=== PATIENT | male | born 1975 | race Caucasian/White ===

== ENCOUNTER 2017-04-03 04:17 | Emergency (ER) | payer OTHER ==
[~2017-04-03] VITALS: Ht 175.2 cm; Wt 68.0 kg
[~2017-04-03 04:17] MED LIST: ANTIVERT25 MG PO; CATAFLAM50 MG PO; CLARITIN10 MG PO; CLEOCIN HCL150 MG PO; CLINDAMYCIN150 MG PO; DAYPRO600 M1 PO; DIFLUCAN100 MG PO; DILANTIN KAPSE100 MG PO; FLEXERIL10 MG PO; FLEXERIL5 MG PO; GENTAMYCIN3 MG/ML OP; IBU-8800 MG PO; IBU800 M1 PO; KEFLEX500 MG PO; LOTRISONE 0.05%1 CRE TP; MEDROL DOSEPAK4 MG PO; MOTRIN,RUFEN800 MG PO; MOTRIN800 MG PO; NAPROSYN500 MG PO; NKHM; PERCOCET 325 MG1 TA2 PO; PERCOCET 325 MG1 TA5 PO; PREDNISONE10 MG PO; ROBAXIN750 MG PO; TOBRADEX 0.1%-0.5 ML OPH; TORADOL10 MG PO; TRAMADOL HCL50 MG PO; ULTRAM50 MG PO; VICODIN 500 MG-1 TAB PO; ZANTAC 300300 MG PO; ZANTAC150 MG PO; ZITHROMAX Z PA250 MG PO
[2017-04-03 04:25] VITALS: BP 124/88
== END 2017-04-03 05:01 | disposition home or self-care (01) ==
LOC: ED 04:17
DX: S93.401A Sprain of unspecified ligament of right ankle, initial encounter (principal); Z91.030 Bee allergy status; Z88.0 Allergy status to penicillin; Z88.6 Allergy status to analgesic agent; W19.XXXA Unspecified fall, initial encounter; Y93.89 Activity, other specified; Y92.89 Other specified places as the place of occurrence of the external cause; Y99.8 Other external cause status

== ENCOUNTER 2017-04-05 21:53 | Emergency (ER) | payer OTHER ==
[~2017-04-05] VITALS: Ht 175.2 cm; Wt 65.8 kg
[2017-04-05 22:03] VITALS: BP 126/69
[2017-04-06] MEDS ORDERED: Motrin,Rufen800 MG PO (00:30)
[2017-04-06] MEDS ORDERED: Percocet 325 MG1 TAB PO (00:30)
== END 2017-04-06 00:56 | disposition home or self-care (01) ==
LOC: ED 21:53
DX: S70.01XA Contusion of right hip, initial encounter (principal); F17.200 Nicotine dependence, unspecified, uncomplicated; Z98.890 Other specified postprocedural states; Z91.030 Bee allergy status; Z88.0 Allergy status to penicillin; Z88.6 Allergy status to analgesic agent; Z88.5 Allergy status to narcotic agent; W10.8XXA Fall (on) (from) other stairs and steps, initial encounter; Y93.89 Activity, other specified; Y92.89 Other specified places as the place of occurrence of the external cause; Y99.9 Unspecified external cause status

== ENCOUNTER 2017-04-22 20:28 | Emergency (ER) | payer OTHER ==
[~2017-04-22] VITALS: Ht 175.2 cm; Wt 68.0 kg
[~2017-04-22 20:28] MED LIST changes: +Motrin,Rufen800 MG PO; +Percocet 325 MG1 TAB PO
[2017-04-22 20:35] VITALS: BP 127/64
[2017-04-22 21:18] LABS: BILIRUBIN NEGATIVE (NEGATIVE); BLOOD NEGATIVE (NEGATIVE); CLARITY SL CLOUDY (CLEAR); COLOR YELLOW (YELLOW); GLUCOSE NEGATIVE (NEGATIVE); KETONE NEGATIVE (NEGATIVE); LEUKO ESTERASE NEGATIVE (NEGATIVE); NITRITE NEGATIVE (NEGATIVE); SPECIFIC GRAVITY 1.025 (1.005-1.030); UROBILINOGEN 0.2 E.U./dl (0.2-1.0)
[2017-04-22 21:35] LABS: BACTERIA TRACE; MUCOUS 3+; WBC 0-2 wbc/hpf (0-5)
[2017-04-22] MEDS ORDERED: Percocet 325 MG1 TAB PO (23:16)
[2017-04-22] MEDS ORDERED: PREDNISONE10 MG PO (23:16)
[2017-04-22] MEDS ORDERED: Orphenadrine C100 MG PO (23:16)
== END 2017-04-22 23:50 | disposition home or self-care (01) ==
LOC: ED 20:28
PROVIDERS: Emergency Medicine Emergency Medical Services
DX: M51.27 Other intervertebral disc displacement, lumbosacral region (principal); F17.200 Nicotine dependence, unspecified, uncomplicated; Z98.890 Other specified postprocedural states; Z91.030 Bee allergy status; Z88.0 Allergy status to penicillin; Z88.6 Allergy status to analgesic agent; Z88.5 Allergy status to narcotic agent

== ENCOUNTER 2017-04-24 14:38 | Emergency (ER) | payer OTHER ==
[~2017-04-24] VITALS: Ht 175.2 cm; Wt 68.0 kg
[~2017-04-24 14:38] MED LIST changes: +Orphenadrine C100 MG PO
[2017-04-24 15:06] VITALS: BP 157/70
[2017-04-24] MEDS ORDERED: CYCLOBENZAPRINE5 M3 PO (16:23)
== END 2017-04-24 17:00 | disposition home or self-care (01) ==
LOC: ED 14:38
DX: M54.5 Low back pain (principal); F17.200 Nicotine dependence, unspecified, uncomplicated; Z98.890 Other specified postprocedural states; Z91.030 Bee allergy status; Z88.6 Allergy status to analgesic agent; Z88.0 Allergy status to penicillin; Z88.5 Allergy status to narcotic agent

== ENCOUNTER 2018-01-01 18:19 | Emergency (ER) | payer OTHER ==
[~2018-01-01] VITALS: Wt 89.8 kg
[~2018-01-01 18:19] MED LIST changes: +CYCLOBENZAPRINE5 M3 PO
[2018-01-01 18:23] VITALS: BP 130/68
[2018-01-01] MEDS ORDERED: TYLENOL EXTRA500 MG PO (18:28)
[2018-01-01] MEDS ORDERED: FOSAMAX70 M1 PO (18:29)
[2018-01-01] MEDS ORDERED: GABAPENTIN TAB600 MG PO (18:29)
[2018-01-01] MEDS ORDERED: TIZANIDINE2 MG PO (18:30)
[2018-01-01] MEDS ORDERED: RA HI-CAL PLUS1 EACH PO (18:30)
[2018-01-01] MEDS ORDERED: FLOVENT DISKUS50 MCG INH (18:31)
[2018-01-01] MEDS ORDERED: NAPROSYN500 MG PO (18:50)
[2018-01-01] MEDS ORDERED: KEFLEX500 M1 PO (18:50)
[2018-01-01] MEDS ORDERED: SEPTDS PO (18:57)
== END 2018-01-01 19:18 | disposition home or self-care (01) ==
LOC: ED 18:19
DX: S90.122A Contusion of left lesser toe(s) without damage to nail, initial encounter (principal); Z88.0 Allergy status to penicillin; Z88.5 Allergy status to narcotic agent; Z91.030 Bee allergy status; Z79.899 Other long term (current) drug therapy; W22.8XXA Striking against or struck by other objects, initial encounter; Y93.89 Activity, other specified; Y92.89 Other specified places as the place of occurrence of the external cause; Y99.8 Other external cause status

== ENCOUNTER 2018-07-03 20:08 | Emergency (ER) | payer OTHER ==
[~2018-07-03] VITALS: Ht 175.2 cm; Wt 79.4 kg
[~2018-07-03 20:08] MED LIST changes: +FLOVENT DISKUS50 MCG INH; +FOSAMAX70 M1 PO; +GABAPENTIN TAB600 MG PO; +KEFLEX500 M1 PO; +RA HI-CAL PLUS1 EACH PO; +SEPTDS PO; +TIZANIDINE2 MG PO; +TYLENOL EXTRA500 MG PO
[2018-07-03 20:12] VITALS: BP 148/78
[2018-07-03] MEDS ORDERED: ZITHROMAX250 MG PO (21:46)
== END 2018-07-03 21:50 ==
LOC: ED 20:08
DX: J02.9 Acute pharyngitis, unspecified (principal); Z91.030 Bee allergy status; Z88.0 Allergy status to penicillin; Z88.6 Allergy status to analgesic agent; Z88.8 Allergy status to other drugs, medicaments and biological substances; Z79.1 Long term (current) use of non-steroidal anti-inflammatories (NSAID); Z79.899 Other long term (current) drug therapy

== ENCOUNTER 2018-08-17 18:25 | Emergency (ER) | payer OTHER ==
[~2018-08-17] VITALS: Wt 72.6 kg
[~2018-08-17 18:25] MED LIST changes: +ZITHROMAX250 MG PO
[2018-08-17 18:50] LABS: BASO % 0.4 % (0.0-1.0); EOS # 0.1 10*3/uL (0.0-0.4); EOS % 0.8 % (1.0-4.0); HEMATOCRIT 45.3 % (42.0-52.0); HEMOGLOBIN 15.6 g/dl (14.0-18.0); LYMPH # 1.6 10*3/uL (1.3-4.4); MEAN CELL VOLUME 94.2 fl (80.0-94.0); MEAN CORPUSCULAR HGB 32.4 pg (27.0-31.0); MEAN CORPUSCULAR HGB CONC 34.4 g/dl (33.0-37.0); MONO # 0.6 10*3/uL (0.1-1.0); MONO % 7.8 % (3.0-9.0); NEUT # 5.1 10*3/uL (2.3-7.9); NEUT % 68.6 % (47.0-73.0); PLATELET COUNT AUTOMATED 307 10*3/uL (130-400); RED BLOOD COUNT 4.81 10*6/uL (4.50-5.90); RED CELL DISTRI WIDTH 12.4 % (0-14.5); WHITE BLOOD COUNT 7.5 10*3/uL (4.8-10.8)
[2018-08-17] MEDS ORDERED: CHLORZOXAZONE500 M2 PO (19:05)
[2018-08-17 19:06] LABS: ALBUMIN 3.9 gm/dl (3.1-4.5); ALKALINE PHOSPHATASE 71 U/L (45-117); BUN 17 mg/dl (7-24); CHLORIDE 107 mmol/L (98-107); CREATININE 0.95 mg/dL (0.70-1.30); POTASSIUM 3.4 mmol/L (3.5-5.1); SGOT/AST 14 IU/L (3-35); SGPT/ALT 25 U/L (12-78); SODIUM 138 mmol/L (136-145); TOTAL PROTEIN 7.4 gm/dL (6.4-8.2)
[2018-08-17 19:25] VITALS: BP 132/74
== END 2018-08-17 19:55 | disposition home or self-care (01) ==
LOC: ED 18:25
PROVIDERS: Nurse Practitioner Family
DX: R51 Headache (principal); R03.0 Elevated blood-pressure reading, without diagnosis of hypertension; M54.32 Sciatica, left side; H53.149 Visual discomfort, unspecified; Z91.030 Bee allergy status; Z88.0 Allergy status to penicillin; Z88.6 Allergy status to analgesic agent; Z88.8 Allergy status to other drugs, medicaments and biological substances; Z79.899 Other long term (current) drug therapy; Z79.2 Long term (current) use of antibiotics

== ENCOUNTER 2018-08-27 15:44 | Emergency (ER) | payer OTHER ==
[~2018-08-27] VITALS: Ht 175.2 cm; Wt 72.6 kg
[~2018-08-27 15:44] MED LIST changes: +CHLORZOXAZONE500 M2 PO
[2018-08-27 15:46] VITALS: BP 127/74
[2018-08-27] MEDS ORDERED: CHLORZOXAZONE500 M2 PO (15:53)
[2018-08-27] MEDS ORDERED: PREDNISONE10 MG PO (15:53)
== END 2018-08-27 16:06 | disposition home or self-care (01) ==
LOC: ED 15:44
DX: M54.32 Sciatica, left side (principal); R03.0 Elevated blood-pressure reading, without diagnosis of hypertension; M54.9 Dorsalgia, unspecified; Z91.030 Bee allergy status; Z88.0 Allergy status to penicillin; Z88.6 Allergy status to analgesic agent; Z79.899 Other long term (current) drug therapy

== ENCOUNTER 2018-08-28 11:50 | Emergency (ER) | payer OTHER ==
[~2018-08-28] VITALS: Ht 175.2 cm; Wt 79.8 kg
[~2018-08-28 11:50] MED LIST changes: -CYCLOBENZAPRINE10 MG PO; -DELTASONE20 M1 PO; -DOXYCYCLINE100 M3 PO; -DULOXETINE HCL60 MG PO; -IBU800 MG PO; -LEXAPRO10 MG PO; -MIRTAZAPINE15 M2 PO; -NAPROXEN D/R500 MG PO; -PREDNISONE50 MG PO; -VIBRAMYCIN100 MG PO
[2018-08-28 12:36] LABS: BASO % 0.2 % (0.0-1.0); EOS % 0.2 % (1.0-4.0); HEMATOCRIT 42.8 % (42.0-52.0); HEMOGLOBIN 14.5 g/dl (14.0-18.0); LYMPH # 3.1 10*3/uL (1.3-4.4); LYMPH % 21.1 % (27.0-41.0); MEAN CELL VOLUME 95.5 fl (80.0-94.0); MEAN CORPUSCULAR HGB 32.4 pg (27.0-31.0); MEAN CORPUSCULAR HGB CONC 33.9 g/dl (33.0-37.0); MEAN PLATELET VOLUME 8.6 fl (9.6-12.3); MONO # 0.9 10*3/uL (0.1-1.0); MONO % 6.5 % (3.0-9.0); NEUT # 10.4 10*3/uL (2.3-7.9); NEUT % 71.7 % (47.0-73.0); PLATELET COUNT AUTOMATED 377 10*3/uL (130-400); RED BLOOD COUNT 4.48 10*6/uL (4.50-5.90); RED CELL DISTRI WIDTH 12.7 % (0-14.5); WHITE BLOOD COUNT 14.5 10*3/uL (4.8-10.8)
[2018-08-28 12:44] LABS: ACT PARTIAL THROMBO TIME 22.6 SECONDS (20.8-31.5); INTERNATIONAL NORM RATIO 0.9 (2.0-3.5)
[2018-08-28 12:51] LABS: ALBUMIN 4.2 gm/dl (3.1-4.5); ALKALINE PHOSPHATASE 64 U/L (45-117); BUN 10 mg/dl (7-24); CHLORIDE 108 mmol/L (98-107); CREATININE 0.79 mg/dL (0.70-1.30); SGOT/AST 12 IU/L (3-35); SGPT/ALT 30 U/L (12-78); SODIUM 139 mmol/L (136-145); TOTAL PROTEIN 7.6 gm/dL (6.4-8.2)
[2018-08-28 13:30] VITALS: BP 134/83
== END 2018-08-28 13:41 | disposition short-term general hospital (02) ==
LOC: ED 11:50
PROVIDERS: Emergency Medicine
DX: G83.4 Cauda equina syndrome (principal); Z91.030 Bee allergy status; Z88.0 Allergy status to penicillin; Z88.6 Allergy status to analgesic agent; Z88.8 Allergy status to other drugs, medicaments and biological substances; Z79.899 Other long term (current) drug therapy

== ENCOUNTER → 2018-08-28 | Outpatient (CLI) | payer OTHER ==
[~2018-08-28] MED LIST changes: +CYCLOBENZAPRINE10 MG PO; +DELTASONE20 M1 PO; +DOXYCYCLINE100 M3 PO; +DULOXETINE HCL60 MG PO; +IBU800 MG PO; +LEXAPRO10 MG PO; +MIRTAZAPINE15 M2 PO; +NAPROXEN D/R500 MG PO; +PREDNISONE50 MG PO; +VIBRAMYCIN100 MG PO
== END | disposition home or self-care (01) ==
LOC: RESCLI 02:14
DX: J45.909 Unspecified asthma, uncomplicated (principal); M54.42 Lumbago with sciatica, left side; M54.41 Lumbago with sciatica, right side; G89.29 Other chronic pain; G43.109 Migraine with aura, not intractable, without status migrainosus; F17.200 Nicotine dependence, unspecified, uncomplicated; W18.30XA Fall on same level, unspecified, initial encounter; Z91.030 Bee allergy status; Z76.89 Persons encountering health services in other specified circumstances; Z71.6 Tobacco abuse counseling; Z79.899 Other long term (current) drug therapy

== ENCOUNTER → 2018-09-07 | Outpatient (CLI) | payer OTHER | END | disposition home or self-care (01) | LOC: RESCLI 02:55 | DX: G43.109 Migraine with aura, not intractable, without status migrainosus (principal); M54.41 Lumbago with sciatica, right side; M54.42 Lumbago with sciatica, left side; G89.29 Other chronic pain; J45.909 Unspecified asthma, uncomplicated; W18.30XA Fall on same level, unspecified, initial encounter; F32.0 Major depressive disorder, single episode, mild; F17.200 Nicotine dependence, unspecified, uncomplicated; Z71.6 Tobacco abuse counseling; Z76.89 Persons encountering health services in other specified circumstances; Z79.899 Other long term (current) drug therapy; Z91.030 Bee allergy status ==

== ENCOUNTER 2018-12-10 20:05 | Emergency (ER) | payer OTHER ==
[~2018-12-10] VITALS: Ht 175.2 cm; Wt 72.6 kg
== END 2018-12-10 20:59 | disposition home or self-care (01) ==
LOC: ED 20:05
DX: S61.213A Laceration without foreign body of left middle finger without damage to nail, initial encounter (principal); F17.200 Nicotine dependence, unspecified, uncomplicated; Z91.030 Bee allergy status; Z88.0 Allergy status to penicillin; Z88.6 Allergy status to analgesic agent; Z88.8 Allergy status to other drugs, medicaments and biological substances; Z79.899 Other long term (current) drug therapy; W26.0XXA Contact with knife, initial encounter; Y93.89 Activity, other specified; Y92.89 Other specified places as the place of occurrence of the external cause; Y99.8 Other external cause status

== ENCOUNTER 2019-01-24 05:05 | Emergency (ER) | payer OTHER ==
[~2019-01-24] VITALS: Ht 175.2 cm; Wt 68.0 kg
[2019-01-24 05:09] VITALS: BP 114/69
[2019-01-24] MEDS ORDERED: LEXAPRO10 MG PO (05:10)
[2019-01-24] MEDS ORDERED: IBU800 MG PO (05:20)
[2019-01-24] MEDS ORDERED: PREDNISONE50 MG PO (05:20)
[2019-01-24] MEDS ORDERED: CYCLOBENZAPRINE10 MG PO (05:20)
== END 2019-01-24 07:00 | disposition home or self-care (01) ==
LOC: ED 05:05
DX: M54.9 Dorsalgia, unspecified (principal); R51 Headache; G89.29 Other chronic pain; Z91.030 Bee allergy status; Z88.0 Allergy status to penicillin; Z88.6 Allergy status to analgesic agent; Z88.8 Allergy status to other drugs, medicaments and biological substances; Z79.899 Other long term (current) drug therapy

== ENCOUNTER 2019-02-06 15:55 | Emergency (ER) | payer OTHER ==
[~2019-02-06] VITALS: Ht 175.2 cm; Wt 72.6 kg
[~2019-02-06 15:55] MED LIST changes: +CYCLOBENZAPRINE10 MG PO; +IBU800 MG PO; +LEXAPRO10 MG PO; +PREDNISONE50 MG PO
[2019-02-06 15:57] VITALS: BP 119/90
[2019-02-06] MEDS ORDERED: DELTASONE20 M1 PO (17:38)
[2019-02-12 02:04] LABS: IGG P18 AB Absent (.); IGG P23 AB Present (.); IGG P28 AB Absent (.); IGG P30 AB Absent (.); IGG P39 AB Absent (.); IGG P41 AB Present (.); IGG P45 AB Absent (.); IGG P58 AB Absent (.); IGG P63 AB Absent (.); IGG P66 AB Absent (.); IGM P23 AB Present (.); IGM P39 AB Absent (.); IGM P41 AB Present (.); LYME IGG WB INTERPRETATION Negative (.); LYME IGM WB INTERPRETATION Positive (.)
== END 2019-02-06 17:53 | disposition home or self-care (01) ==
LOC: ED 15:55
PROVIDERS: Physician Assistant
DX: R21 Rash and other nonspecific skin eruption (principal); L98.9 Disorder of the skin and subcutaneous tissue, unspecified; Z79.899 Other long term (current) drug therapy; Z88.0 Allergy status to penicillin; Z88.6 Allergy status to analgesic agent; Z88.8 Allergy status to other drugs, medicaments and biological substances; Z91.030 Bee allergy status

== ENCOUNTER 2019-02-12 10:46 | Emergency (ER) | payer OTHER ==
[~2019-02-12] VITALS: Ht 175.2 cm; Wt 68.0 kg
[~2019-02-12 10:46] MED LIST changes: +DELTASONE20 M1 PO
[2019-02-12 10:47] VITALS: BP 137/64
[2019-02-12] MEDS ORDERED: VIBRAMYCIN100 MG PO (10:59)
== END 2019-02-12 11:07 | disposition home or self-care (01) ==
LOC: ED 10:46
DX: A69.20 Lyme disease, unspecified (principal); Z98.890 Other specified postprocedural states; Z79.899 Other long term (current) drug therapy; Z91.030 Bee allergy status; Z88.0 Allergy status to penicillin; Z88.6 Allergy status to analgesic agent; Z88.5 Allergy status to narcotic agent

== ENCOUNTER 2019-03-01 15:36 | Inpatient (IN) | payer OTHER ==
[~2019-03-01] VITALS: Ht 175.2 cm; Wt 79.2 kg
--- NOTE | ~2019-03-01 | CON ---
[place], [place] REPORT OF CONSULTATION [id number] #: [id number] ROOM: 504 DOCTOR: DIANA MARSHALL,NOVEMBER BIRTHDATE: [birth year] DOS: 03/02/2019 HISTORY OF PRESENT ILLNESS: The patient is a 43-year-old male who was admitted overnight with confusion. He was diagnosed around February 06 with Lyme's disease. Reviewing the prior lab work, he was positive for IgM and multiple IgG. He was treated. He had a rash at that time, which he states was almost systemic. He was treated with two weeks of doxycycline. However, upon further questioning, the patient is on oral calcium 3 times a day and each time he took the doxycycline it was taken with calcium. He presents now complaining of confusion, apparently confusion such as episodes of leaving his house and not being sure where he is at and having to call friends to tell him where he is and where he is going, etc. He has also had intermittent nausea and vomiting. Last emesis was 4 or 5 days ago. He is having difficulties with his legs, states he has tremors in bilateral legs, to the point where he has difficulty walking at times as well as pain in both legs, also gives recent history of left arm tremors and left eye, photosensitivity, which involves pain and unable to tolerate light being shined. He also states he has been having night sweats and chills. He does not have a thermometer to have checked his temperature. He also complains of weight loss during this time over the last few weeks. He is bradycardic, though he states he was bradycardic in [facility] 4 months ago with it at that time going as low as in the 30s. He does state that now it is worse than it normally is. His electrocardiogram from ER does not document any heart block. He has a history of polysubstance abuse. He admits to cocaine use, states he last used one week ago. He smokes pot daily. He also smokes cigarettes, pack to pack and a half per day. His tox screen was positive for marijuana, cocaine and amphetamines. He denies any knowledge of amphetamine use. WBCs were 12.7 on admission, they have improved today to 7.4. He received 2 grams of IV Rocephin. ID is consulted for possible Lyme's disease, sequelae of Lyme's or Lyme's encephalopathy. Sed rate 5. The patient states he has had some headaches, though he does not have any headache now and some neck stiffness, although he seems to have no limitation of movement during interview and exam. PAST MEDICAL HISTORY: As above, as well as anxiety, asthma, cauda equina syndrome, chronic back problems with prior T9-T10 compression fracture, L5 compression fracture, color blindness, depression, sciatica, pneumothorax on the left. He had a prior lymph node biopsy of the inguinal region. SOCIAL HISTORY: As above in history of present illness. He has been a smoker for 30 years. FAMILY MEDICAL HISTORY: Mother with liver disease. Father with diabetes and cardiac issues. ALLERGIES: Include BEESTINGS, PENICILLINS, BUPROPION, HYDROCODONE, IVORY SOAP. LABORATORY DATA: WBC 7.4, platelets 297, lymphocytes 3.8. BUN 19, creatinine 0.84. Hemoglobin A1c is 5.5. LFTs within normal limits. C-reactive protein less than 0.29. ProBNP of 19. Blood and urine cultures remain sterile. [place], [place] REPORT OF CONSULTATION NAME: LOLA MCQUEEN JR UNIT #: [id number] ROOM: [facility] DOCTOR: DIANA MARSHALL,NOVEMBER BIRTHDATE: [birth year] REVIEW OF SYSTEMS: As above in history of present illness. He has been afebrile since admission. Review of systems otherwise unremarkable. CURRENT MEDICATIONS: Lipitor, Lexapro, Lovenox, Cymbalta, vitamin B12, vitamin D, Protonix, gabapentin, Os-Bunny, Remeron, Nicotrol, Pulmicort, Percocet, Tylenol, Restoril, milk of mag, Dulcolax. He is status post 2 grams of IV Rocephin. PHYSICAL EXAMINATION: VITAL SIGNS: Temperature 98.1, pulse 54, respirations 18, BP 119/64. GENERAL: A 43-year-old male, nontoxic in appearance, in no acute distress. HEAD, EYES, EARS, NOSE AND THROAT: He is normocephalic, atraumatic. Pupils equal, round and reactive to light and accommodation. He does flinch away with checking the left pupil. Oropharynx is clear. No exudates. No thrush. NECK: Supple. No cervical lymphadenopathy. The patient can chin tuck without a problem. LUNGS: Clear to auscultation bilaterally. Respirations even and unlabored. HEART: Regular rhythm. Rate currently is 44. No murmur appreciated. ABDOMEN: Soft, nondistended. He has some mild generalized tenderness, especially on the left. Positive bowel sounds. No masses palpated. GENITAL: Deferred. EXTREMITIES: No edema, deformity or cyanosis. +2 bilateral dorsalis pedis pulses as well as +2 bilateral radial pulses. SKIN: Warm, dry, free of rashes. No wounds. ASSESSMENT AND PLAN: Status post treatment for Lyme's disease with 2 weeks of oral doxycycline, which he did take twice a day with his calcium carbonate. Encephalopathy seems unlikely. At this point, it is difficult to distinguish what are symptoms of infection versus his drug use. Serology would not be beneficial at this point, as serology for Lyme's can be positive for years. I discussed the case with Dr. Jean Carlos Mccoy. At this point, we will place the patient on Rocephin 2 grams IV daily for now and recommend watching until Monday for signs of carditis given his ongoing bradycardia or signs of encephalitis. NOVEMBER JOANNA ORTIZ [place], [place] REPORT OF CONSULTATION NAME: LOLA MCQUEEN JR UNIT #: [id number] ROOM: [facility] DOCTOR: DIANA BIRTHDATE: [birth year] Ludivina Lugo MD CM:CONSTR:REPORT OF CONSULTATION 1651 03/04/19 0625 interface
--- NOTE | ~2019-03-01 | CON ---
[place], [place] REPORT OF CONSULTATION NAME: LOLA MCQUEEN JR UNIT #: [id number] ROOM: 504 DOCTOR: LUDIVINA YOUNG MD BIRTHDATE: [birth year] DOS: 03/02/2019 ADDENDUM This is an addendum to the consult note done by the nurse practitioner, Liyah Ferreira. I agree with the assessment and plan. I reviewed the labs and imaging, made the necessary changes in the note. Ludivina Young MD CM:CONSTR:REPORT OF CONSULTATION 1428 03/06/19 0012 interface
--- NOTE | ~2019-03-01 | EKG ---
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
[2019-03-01 15:36] VITALS: BP 139/63
[~2019-03-01 15:36] MED LIST changes: +VIBRAMYCIN100 MG PO
[2019-03-01 16:15] LABS: BILIRUBIN 2+ (NEGATIVE); BLOOD NEGATIVE (NEGATIVE); CLARITY CLEAR (CLEAR); COLOR YELLOW (YELLOW); GLUCOSE NEGATIVE (NEGATIVE); KETONE NEGATIVE (NEGATIVE); LEUKO ESTERASE NEGATIVE (NEGATIVE); NITRITE NEGATIVE (NEGATIVE); PH 5.5 (5.0-9.0); SPECIFIC GRAVITY 1.025 (1.005-1.030)
[2019-03-01 16:29] LABS: URINE AMPHETAMINES > 1000 (1000ng/ml); URINE BARBITURATES < 200 (200ng/ml); URINE BENZODIAZEPINES < 200 (200ng/ml); URINE CANNABINOIDS (THC) > 50 (50ng/ml); URINE COCAINE > 300 (300ng/ml); URINE METHADONE < 300 (300ng/ml); URINE OPIATES < 300 (300ng/ml)
[2019-03-01 16:30] LABS: BASO # 0.1 10*3/uL (0.0-0.1); BASO % 0.7 % (0.0-1.0); EOS # 0.1 10*3/uL (0.0-0.4); EOS % 0.6 % (1.0-4.0); HEMATOCRIT 43.2 % (42.0-52.0); HEMOGLOBIN 14.5 g/dl (14.0-18.0); LYMPH # 2.6 10*3/uL (1.3-4.4); LYMPH % 20.1 % (27.0-41.0); MEAN CORPUSCULAR HGB 32.2 pg (27.0-31.0); MEAN CORPUSCULAR HGB CONC 33.6 g/dl (33.0-37.0); MEAN PLATELET VOLUME 9.1 fl (9.6-12.3); MONO # 0.6 10*3/uL (0.1-1.0); NEUT # 9.3 10*3/uL (2.3-7.9); NEUT % 73.4 % (47.0-73.0); PLATELET COUNT AUTOMATED 351 10*3/uL (130-400); RED CELL DISTRI WIDTH 13.2 % (0-14.5); WHITE BLOOD COUNT 12.7 10*3/uL (4.8-10.8)
[2019-03-01 16:30] LABS: URINE PHENCYCLIDINE < 25 (25ng/ml)
[2019-03-01 16:33] LABS: BACTERIA 1+; MUCOUS 3+
[2019-03-01 16:41] LABS: ACT PARTIAL THROMBO TIME 25.7 SECONDS (20.0-32.1); INTERNATIONAL NORM RATIO 0.9 (2.0-3.5)
[2019-03-01 16:45] LABS: ALBUMIN 4.6 gm/dl (3.1-4.5); ALKALINE PHOSPHATASE 86 U/L (45-117); BUN 20 mg/dl (7-24); CHLORIDE 107 mmol/L (98-107); CREATININE 0.88 mg/dL (0.70-1.30); LIPASE 77 U/L (73-393); POTASSIUM 3.5 mmol/L (3.5-5.1); SGOT/AST 14 IU/L (3-35); SGPT/ALT 25 U/L (12-78); SODIUM 140 mmol/L (136-145); TOTAL PROTEIN 7.6 gm/dL (6.4-8.2)
[2019-03-01 16:46] LABS: TROPONIN I < 0.015 ng/ml (<0.045)
[2019-03-01 17:00] VITALS: BP 138/62
[2019-03-01 18:00] VITALS: BP 133/81; BP 134/60
--- NOTE | 2019-03-01 18:36 | NUR ---
PT REFUSES TO CHANGE INTO HOSPITAL GOWN.
[2019-03-01] MEDS ORDERED: CHLORZOXAZONE500 M2 PO (18:57)
[2019-03-01] MEDS ORDERED: NAPROXEN D/R500 MG PO (18:58)
[2019-03-01 20:00] VITALS: BP 128/66
[2019-03-01] MEDS ORDERED: DULOXETINE HCL60 MG PO (20:07)
[2019-03-01] MEDS ORDERED: MIRTAZAPINE15 M2 PO (20:07)
--- NOTE | 2019-03-01 20:09 | NUR ---
DR STOVALL MADE AWARE OF MEDICATION RECONCILLIATION BEING COMPLETE
--- NOTE | 2019-03-01 22:03 | NUR ---
SPOKE WITH PATIENT REGARDING ALLERGIES, PATIENT STATES THAT WITH VICODIN MAKES HIM ITCH AND THEN BECOME SWEATY AND EVENTUALLY PASS OUT. HE STATES THAT HE TAKES TYLENOL REGULARLY AT HOME WITH NO REACTION.DR STOVALL MADE AWARE
--- NOTE | 2019-03-01 22:20 | NUR ---
PRN PERCOCET GIVEN FOR LEG PAIN AT THIS TIME. RN WILL MONITOR FOR EFFECTIVENESS
--- NOTE | 2019-03-01 22:23 | NUR ---
PATIENT IS REQUESTING TO HAVE HIS PM MEDICATIONS AT THIS TIME, STATES HE DID NOT TAKE EARLIER DUE TO BEING IN THE ER. NEURONTIN GIVEN AT THIS TIME, AND OTHER MEDICATIONS WILL BE CHANGED TO NOW DOSES SO THAT PATIENT CAN GET CAUGHT UP ON HIS MEDICATION REGIMEN
--- NOTE | 2019-03-01 22:56 | NUR ---
PATIENT ADMINISTERED OTHER PM MEDICATIONS, OSCAL, PARAFON, ZANAFLEX, AND REMERON. DENIES OTHER NEED AT THIS ITND.
--- NOTE | 2019-03-01 23:04 | NUR ---
INFECTIOUS DISEASE ANSWERING SERVICE CALLED AT THIS TIME, DR COTTO IS [employer]. STATES THEY WILL PLCE THECALL OUT TO THE
[2019-03-02] VITALS: BP 126/69
--- NOTE | 2019-03-02 05:04 | NUR ---
PATIENT RESTING IN BED WITH EYES CLOSED AT THIS TIME, APPEARS TO BE SLEEPING. PATIENTS HEARTRATE HAS CONTINUED TO BE UPPER 30'S 40'S AND 50'S FOR THE MAJORITY OF THE NIGHT. DRS ARE AWARE. PATIENT DISPLAYS NO SIGNS OR SYMPTOMS OF DISTRESS AT THE CURRENT TIME. RESPIRATIONS ARE QUIET AND UNLABORED ON ROOM AIR. RN WILL CONTINUE TO MONITOR
[2019-03-02 06:31] LABS: BASO # 0.1 10*3/uL (0.0-0.1); BASO % 0.9 % (0.0-1.0); EOS # 0.3 10*3/uL (0.0-0.4); EOS % 3.8 % (1.0-4.0); HEMATOCRIT 40.3 % (42.0-52.0); HEMOGLOBIN 13.2 g/dl (14.0-18.0); LYMPH # 3.8 10*3/uL (1.3-4.4); LYMPH % 51.5 % (27.0-41.0); MEAN CELL VOLUME 98.1 fl (80.0-94.0); MEAN CORPUSCULAR HGB 32.1 pg (27.0-31.0); MEAN CORPUSCULAR HGB CONC 32.8 g/dl (33.0-37.0); MONO # 0.7 10*3/uL (0.1-1.0); MONO % 9.4 % (3.0-9.0); NEUT # 2.5 10*3/uL (2.3-7.9); NEUT % 34.3 % (47.0-73.0); PLATELET COUNT AUTOMATED 297 10*3/uL (130-400); RED BLOOD COUNT 4.11 10*6/uL (4.50-5.90); RED CELL DISTRI WIDTH 13.2 % (0-14.5); WHITE BLOOD COUNT 7.4 10*3/uL (4.8-10.8)
[2019-03-02 07:04] LABS: ALBUMIN 3.6 gm/dl (3.1-4.5); ALKALINE PHOSPHATASE 72 U/L (45-117); BUN 19 mg/dl (7-24); CHLORIDE 109 mmol/L (98-107); CHOLESTEROL 231 mg/dL (<200); CREATININE 0.84 mg/dL (0.70-1.30); HDL CHOLESTEROL 33 mg/dl (40-60); LDL CHOLESTEROL 173 mg/dL (9-159); PHOSPHOROUS 3.8 mg/dL (2.5-4.9); POTASSIUM 4.2 mmol/L (3.5-5.1); SGOT/AST 13 IU/L (3-35); SGPT/ALT 22 U/L (12-78); SODIUM 143 mmol/L (136-145); TOTAL PROTEIN 6.6 gm/dL (6.4-8.2); TRIGLYCERIDES 126 mg/dl (<150); VLDL CHOLESTEROL 25 mg/dL (6-40)
[2019-03-02 07:10] LABS: THYROID STIM HORMONE (HS) 0.807 uIU/ml (0.358-4.75)
[2019-03-02 07:18] LABS: INTERNATIONAL NORM RATIO 0.9 (2.0-3.5)
[2019-03-02 08:00] VITALS: BP 114/66
--- NOTE | 2019-03-02 08:07 | NUR ---
PERCOCET GIVEN FOR C/O BL LEG PAIN. WILL MONITOR.
--- NOTE | 2019-03-02 08:32 | NUR ---
NOTIFIED DR. BOLES OF PT'S HEART RATE. WILL MONITOR.
[2019-03-02 08:43] LABS: VITAMIN D, 25-HYDROXY 19.6 ng/mL (30-100)
--- NOTE | 2019-03-02 09:10 | NUR ---
PERCOCET EFFECTIVE PER PT.
--- NOTE | 2019-03-02 09:15 | NUR ---
IVIVIV started RAN with #22 protective cath after 0 attempts. Site prepped with Chloroprep. Sterile dressing applied. Patient tolerated procedure welL PRABHU TIM L
[2019-03-02 12:00] VITALS: BP 114/68
[2019-03-02 16:00] VITALS: BP 119/64
--- NOTE | 2019-03-02 17:46 | NUR ---
PERCOCET GIVEN FOR C/O BLE PAIN, 8/10 ON PAIN SCALE. WILL MONITOR.
[2019-03-02 20:00] VITALS: BP 126/68
[2019-03-03] VITALS: BP 129/69
[2019-03-03 07:02] LABS: BASO # 0.1 10*3/uL (0.0-0.1); BASO % 1.1 % (0.0-1.0); EOS # 0.2 10*3/uL (0.0-0.4); EOS % 3.1 % (1.0-4.0); HEMATOCRIT 39.6 % (42.0-52.0); HEMOGLOBIN 13.1 g/dl (14.0-18.0); LYMPH # 3.5 10*3/uL (1.3-4.4); LYMPH % 46.3 % (27.0-41.0); MEAN CELL VOLUME 97.8 fl (80.0-94.0); MEAN CORPUSCULAR HGB 32.3 pg (27.0-31.0); MEAN CORPUSCULAR HGB CONC 33.1 g/dl (33.0-37.0); MEAN PLATELET VOLUME 9.5 fl (9.6-12.3); MONO # 0.6 10*3/uL (0.1-1.0); NEUT # 3.1 10*3/uL (2.3-7.9); NEUT % 41.2 % (47.0-73.0); PLATELET COUNT AUTOMATED 324 10*3/uL (130-400); RED BLOOD COUNT 4.05 10*6/uL (4.50-5.90); RED CELL DISTRI WIDTH 13.2 % (0-14.5); WHITE BLOOD COUNT 7.5 10*3/uL (4.8-10.8)
[2019-03-03 07:33] LABS: ALBUMIN 3.5 gm/dl (3.1-4.5); BUN 24 mg/dl (7-24); CHLORIDE 109 mmol/L (98-107); CREATININE 0.67 mg/dL (0.70-1.30); POTASSIUM 3.5 mmol/L (3.5-5.1); SGOT/AST 13 IU/L (3-35); SGPT/ALT 22 U/L (12-78); SODIUM 142 mmol/L (136-145); TOTAL PROTEIN 6.5 gm/dL (6.4-8.2)
[2019-03-03 07:34] LABS: ALKALINE PHOSPHATASE 67 U/L (45-117)
[2019-03-03 08:00] VITALS: BP 110/64
--- NOTE | 2019-03-03 10:01 | NUR ---
PERCOCET GIVEN FOR C/O BILATERAL HIP/LEG PAIN. RATES 8/10 ON PAIN SCALE. WILL MONITOR.
--- NOTE | 2019-03-03 11:00 | NUR ---
PERCOCET EFFECTIVE PER PT.
[2019-03-03 12:00] VITALS: BP 117/68
[2019-03-03 16:00] VITALS: BP 129/57
--- NOTE | 2019-03-03 16:17 | NUR ---
SPOKE WITH DR COTTO FROM ID ABOUT DC INSTRUCTIONS. SEE DC ORDER. DR BOLES CALLED WITH INSTRUCTIONS
[2019-03-03] MEDS ORDERED: DOXYCYCLINE100 M3 PO (16:27)
--- NOTE | 2019-03-03 17:13 | NUR ---
CCDIS Discharge instructions reviewed with patient/family. Patient receptive and verbalizes understanding. Follow-up care arranged. Written instructions given to patient/family. PRABHU TIM
== END 2019-03-03 17:13 | disposition home or self-care (01) | DRG 71 ==
LOC: ED 15:36 → EDHOLD 18:13 → 5E 18:31
PROVIDERS: Emergency Medicine; Internal Medicine; Student in an Organized Health Care Education/Training Program; ADMIT Internal Medicine
DX: G93.41 Metabolic encephalopathy (principal); G83.4 Cauda equina syndrome; A69.20 Lyme disease, unspecified; F32.9 Major depressive disorder, single episode, unspecified; F41.9 Anxiety disorder, unspecified; G89.29 Other chronic pain; J45.909 Unspecified asthma, uncomplicated; R00.1 Bradycardia, unspecified; D72.829 Elevated white blood cell count, unspecified; D75.89 Other specified diseases of blood and blood-forming organs; R82.71 Bacteriuria; F14.10 Cocaine abuse, uncomplicated; F12.10 Cannabis abuse, uncomplicated; F15.10 Other stimulant abuse, uncomplicated; F17.210 Nicotine dependence, cigarettes, uncomplicated; R26.81 Unsteadiness on feet; M54.9 Dorsalgia, unspecified; M54.32 Sciatica, left side; Z83.79 Family history of other diseases of the digestive system; Z83.3 Family history of diabetes mellitus; Z82.49 Family history of ischemic heart disease and other diseases of the circulatory system; Z88.6 Allergy status to analgesic agent; Z71.6 Tobacco abuse counseling; Z91.030 Bee allergy status; Z88.0 Allergy status to penicillin; Z91.09 Other allergy status, other than to drugs and biological substances; Z88.8 Allergy status to other drugs, medicaments and biological substances; Z79.899 Other long term (current) drug therapy

== ENCOUNTER → 2019-04-24 | Outpatient (CLI) | payer OTHER ==
[~2019-04-24] MED LIST changes: +DOXYCYCLINE100 M3 PO; +DULOXETINE HCL60 MG PO; +MIRTAZAPINE15 M2 PO; +NAPROXEN D/R500 MG PO
== END | disposition home or self-care (01) ==
LOC: RESCLI 10:18
DX: F32.0 Major depressive disorder, single episode, mild (principal); J45.909 Unspecified asthma, uncomplicated; M54.42 Lumbago with sciatica, left side; M89.9 Disorder of bone, unspecified; B94.8 Sequelae of other specified infectious and parasitic diseases; Z79.899 Other long term (current) drug therapy; W18.30XA Fall on same level, unspecified, initial encounter

== ENCOUNTER 2019-04-27 03:07 | Emergency (ER) | payer OTHER ==
[~2019-04-27] VITALS: Ht 175.2 cm; Wt 68.0 kg
[2019-04-27 04:03] LABS: BASO # 0.1 10*3/uL (0.0-0.1); BASO % 0.5 % (0.0-1.0); EOS # 0.2 10*3/uL (0.0-0.4); EOS % 1.8 % (1.0-4.0); HEMATOCRIT 35.2 % (42.0-52.0); HEMOGLOBIN 11.9 g/dl (14.0-18.0); LYMPH # 2.9 10*3/uL (1.3-4.4); MEAN CELL VOLUME 96.2 fl (80.0-94.0); MEAN CORPUSCULAR HGB 32.5 pg (27.0-31.0); MEAN CORPUSCULAR HGB CONC 33.8 g/dl (33.0-37.0); MEAN PLATELET VOLUME 8.9 fl (9.6-12.3); MONO # 0.8 10*3/uL (0.1-1.0); MONO % 6.8 % (3.0-9.0); NEUT # 7.2 10*3/uL (2.3-7.9); NEUT % 64.5 % (47.0-73.0); PLATELET COUNT AUTOMATED 244 10*3/uL (130-400); RED BLOOD COUNT 3.66 10*6/uL (4.50-5.90); RED CELL DISTRI WIDTH 13.4 % (0-14.5); WHITE BLOOD COUNT 11.2 10*3/uL (4.8-10.8)
[2019-04-27 04:08] LABS: BILIRUBIN NEGATIVE (NEGATIVE); BLOOD NEGATIVE (NEGATIVE); CLARITY CLEAR (CLEAR); COLOR YELLOW (YELLOW); GLUCOSE NEGATIVE (NEGATIVE); KETONE NEGATIVE (NEGATIVE); LEUKO ESTERASE NEGATIVE (NEGATIVE); NITRITE NEGATIVE (NEGATIVE); UROBILINOGEN 0.2 E.U./dl (0.2-1.0)
[2019-04-27 04:15] LABS: BACTERIA 2+; EPITHELIAL CELLS 0-2; WBC 0-2 wbc/hpf (0-5)
[2019-04-27 04:16] LABS: ACT PARTIAL THROMBO TIME 25.1 SECONDS (20.0-32.1); INTERNATIONAL NORM RATIO 0.9 (2.0-3.5)
[2019-04-27 04:17] LABS: URINE AMPHETAMINES < 1000 (1000ng/ml); URINE BARBITURATES < 200 (200ng/ml); URINE BENZODIAZEPINES < 200 (200ng/ml); URINE CANNABINOIDS (THC) > 50 (50ng/ml); URINE COCAINE > 300 (300ng/ml); URINE METHADONE < 300 (300ng/ml); URINE OPIATES < 300 (300ng/ml)
[2019-04-27 04:18] LABS: URINE PHENCYCLIDINE < 25 (25ng/ml)
[2019-04-27 04:20] LABS: ALBUMIN 3.9 gm/dl (3.1-4.5); ALKALINE PHOSPHATASE 51 U/L (45-117); BUN 12 mg/dl (7-24); CHLORIDE 104 mmol/L (98-107); CREATININE 0.95 mg/dL (0.70-1.30); LIPASE 147 U/L (73-393); POTASSIUM 3.4 mmol/L (3.5-5.1); SGOT/AST 14 IU/L (3-35); SGPT/ALT 21 U/L (12-78); SODIUM 140 mmol/L (136-145); TOTAL PROTEIN 6.2 gm/dL (6.4-8.2)
[2019-04-27 04:21] LABS: ACETAMINOPHEN (TYLENOL) < 5.0 ug/ml (10-30); TROPONIN I < 0.015 ng/ml (<0.045)
[2019-04-27 04:22] LABS: ETHYL ALCOHOL < 3.0 mg/dl (<3)
[2019-04-27 05:18] VITALS: BP 107/55
[2019-04-27 06:25] VITALS: BP 107/55
== END 2019-04-27 07:30 | disposition home or self-care (01) ==
LOC: ED 03:07
PROVIDERS: Emergency Medicine Emergency Medical Services
DX: R41.82 Altered mental status, unspecified (principal); R47.81 Slurred speech; R00.1 Bradycardia, unspecified; F19.10 Other psychoactive substance abuse, uncomplicated; E78.5 Hyperlipidemia, unspecified; J45.909 Unspecified asthma, uncomplicated; G89.29 Other chronic pain; F17.210 Nicotine dependence, cigarettes, uncomplicated; Z88.0 Allergy status to penicillin; Z88.6 Allergy status to analgesic agent; Z79.899 Other long term (current) drug therapy; Z91.030 Bee allergy status

== ENCOUNTER → 2019-05-30 | Outpatient (CLI) | payer OTHER ==
[~2019-05-30] MED LIST changes: +ALENDRONATE SOD70 M1 PO; +MAGNESIUM OXID400 MG PO; +Magnesium Oxid400 MG PO; +PROVENTIL HFA6.7 GM INH
== END ==
LOC: RESCLI 01:52
DX: Z23 Encounter for immunization (principal); B94.8 Sequelae of other specified infectious and parasitic diseases; F32.0 Major depressive disorder, single episode, mild; J45.909 Unspecified asthma, uncomplicated; M54.42 Lumbago with sciatica, left side; M89.9 Disorder of bone, unspecified; E53.8 Deficiency of other specified B group vitamins; G43.909 Migraine, unspecified, not intractable, without status migrainosus; F17.210 Nicotine dependence, cigarettes, uncomplicated; F12.10 Cannabis abuse, uncomplicated; W18.30XA Fall on same level, unspecified, initial encounter; Z79.51 Long term (current) use of inhaled steroids; Z79.1 Long term (current) use of non-steroidal anti-inflammatories (NSAID); Z79.899 Other long term (current) drug therapy

== ENCOUNTER → 2019-06-07 | Outpatient (CLI) | payer OTHER | END | disposition home or self-care (01) | LOC: RAD 13:30 | DX: Z13.820 Encounter for screening for osteoporosis (principal); M89.9 Disorder of bone, unspecified; Z72.0 Tobacco use ==

== ENCOUNTER → 2019-06-24 | Outpatient (CLI) | payer OTHER | END | disposition home or self-care (01) | LOC: RESCLI 15:05 | DX: E53.8 Deficiency of other specified B group vitamins (principal); J45.909 Unspecified asthma, uncomplicated; G43.909 Migraine, unspecified, not intractable, without status migrainosus; Z79.899 Other long term (current) drug therapy ==

== ENCOUNTER → 2019-07-04 | Outpatient (CLI) | payer OTHER ==
[2019-07-04 15:04] LABS: URINE AMPHETAMINES < 1000 (1000ng/ml); URINE BARBITURATES < 200 (200ng/ml); URINE BENZODIAZEPINES < 200 (200ng/ml); URINE CANNABINOIDS (THC) > 50 (50ng/ml); URINE COCAINE > 300 (300ng/ml); URINE METHADONE < 300 (300ng/ml); URINE OPIATES < 300 (300ng/ml)
[2019-07-04 15:06] LABS: URINE PHENCYCLIDINE < 25 (25ng/ml)
== END | disposition home or self-care (01) ==
LOC: RESCLI 00:19
PROVIDERS: Internal Medicine Nephrology
DX: Z71.6 Tobacco abuse counseling (principal); M54.42 Lumbago with sciatica, left side; J45.909 Unspecified asthma, uncomplicated; B94.8 Sequelae of other specified infectious and parasitic diseases; I10 Essential (primary) hypertension; F32.0 Major depressive disorder, single episode, mild; F19.10 Other psychoactive substance abuse, uncomplicated; I95.1 Orthostatic hypotension; M89.9 Disorder of bone, unspecified; E53.8 Deficiency of other specified B group vitamins; W18.30XA Fall on same level, unspecified, initial encounter; Z79.899 Other long term (current) drug therapy; Z91.030 Bee allergy status

== ENCOUNTER 2019-07-22 03:57 | Inpatient (IN) | payer OTHER ==
[2019-07-19 12:48] VITALS: BP 125/66
[2019-07-22] VITALS (7 sets, daily range): BP systolic 112–133; BP diastolic 57–86
[~2019-07-22] VITALS: Ht 175.3 cm; Wt 81.3 kg
[~2019-07-22 03:57] MED LIST changes: -ALENDRONATE SOD70 M1 PO; -MAGNESIUM OXID400 MG PO; -Magnesium Oxid400 MG PO; -PROVENTIL HFA6.7 GM INH
--- NOTE | 2019-07-22 12:48 | NUR ---
A 43, admitted to , under the services of WILLIAM Snow DO with a diagnosis of S/P PACEMAKER INSERTIONS. Chief complaint is PAIN. Patient arrived via stretcher from [place]. Monitor applied. Initial assessment completed. Vital signs taken and recorded. WILLIAM SNOW DO notified of admission to the unit. Orders received. See assessment for past medical history, medications and allergies. Patient and/or family oriented to unit. [address] visitation policy reviewed. Clothing/patient valuable form completed. BELEN CHAVEZ
[2019-07-22 16:27] LABS: BASO # 0.1 10*3/uL (0.0-0.1); BASO % 0.5 % (0.0-1.0); EOS # 0.4 10*3/uL (0.0-0.4); EOS % 2.2 % (1.0-4.0); HEMATOCRIT 42.3 % (42.0-52.0); HEMOGLOBIN 14.5 g/dl (14.0-18.0); LYMPH % 24.4 % (27.0-41.0); MEAN CELL VOLUME 93.8 fl (80.0-94.0); MEAN CORPUSCULAR HGB 32.2 pg (27.0-31.0); MEAN CORPUSCULAR HGB CONC 34.3 g/dl (33.0-37.0); MONO # 1.2 10*3/uL (0.1-1.0); NEUT # 10.8 10*3/uL (2.3-7.9); NEUT % 65.6 % (47.0-73.0); PLATELET COUNT AUTOMATED 319 10*3/uL (130-400); RED BLOOD COUNT 4.51 10*6/uL (4.50-5.90); RED CELL DISTRI WIDTH 12.6 % (0-14.5); WHITE BLOOD COUNT 16.5 10*3/uL (4.8-10.8)
[2019-07-22 16:42] LABS: ALBUMIN 3.9 gm/dl (3.1-4.5); ALKALINE PHOSPHATASE 71 U/L (45-117); BUN 18 mg/dl (7-24); CHLORIDE 107 mmol/L (98-107); CREATININE 0.89 mg/dL (0.70-1.30); POTASSIUM 3.6 mmol/L (3.5-5.1); SGOT/AST 14 IU/L (3-35); SGPT/ALT 23 U/L (12-78); SODIUM 138 mmol/L (136-145); TOTAL PROTEIN 7.2 gm/dL (6.4-8.2)
[2019-07-22] MEDS ORDERED: MAGNESIUM OXID400 MG PO (17:21)
[2019-07-22] MEDS ORDERED: Magnesium Oxid400 MG PO (17:26)
[2019-07-22] MEDS ORDERED: ALENDRONATE SOD70 M1 PO (17:40)
[2019-07-22] MEDS ORDERED: PROVENTIL HFA6.7 GM INH (17:50)
--- NOTE | 2019-07-22 19:16 | NUR ---
[facility]CO ADMINISTERED FOR PT C/O LEFT SHOULDER/PACEMAKER SITE PAIN/SORENESS RATED A 10/10 ON THE PAIN SCALE.
--- NOTE | 2019-07-22 20:05 | NUR ---
PT STATES HE GOT RELIEF FROM THE NORCO AND WOULD RATE THE PAIN A 6/10 AT THIS TIME.
--- NOTE | 2019-07-22 21:25 | NUR ---
24 HOUR CHART CHECK COMPLETE.
--- NOTE | 2019-07-22 23:22 | NUR ---
NORCO ADMINISTERED FOR PT C/O SURGICAL SITE PAIN IN LEFT CHEST FROM PACEMAKER PLACEMENT. WILL CONTINUE TO MONITOR AND REASSESS. NO OTHER COMPLAINTS AT THIS TIME. CALL LIGHT IN REACH.
[2019-07-23] VITALS: BP 125/68
--- NOTE | 2019-07-23 05:10 | NUR ---
NORCO ADMINISTERED FOR PT C/O PACEMAKER INSERTION SITE PAIN RATED 7/10 ON THE PAIN SCALE. WILL CONTINUE TO MONITOR.
[2019-07-23 06:20] LABS: BASO # 0.1 10*3/uL (0.0-0.1); BASO % 1.4 % (0.0-1.0); EOS # 0.4 10*3/uL (0.0-0.4); EOS % 4.4 % (1.0-4.0); HEMATOCRIT 43.8 % (42.0-52.0); HEMOGLOBIN 14.8 g/dl (14.0-18.0); LYMPH # 3.3 10*3/uL (1.3-4.4); LYMPH % 38.4 % (27.0-41.0); MEAN CELL VOLUME 94.4 fl (80.0-94.0); MEAN CORPUSCULAR HGB 31.9 pg (27.0-31.0); MEAN CORPUSCULAR HGB CONC 33.8 g/dl (33.0-37.0); MONO # 0.8 10*3/uL (0.1-1.0); MONO % 9.8 % (3.0-9.0); NEUT # 3.9 10*3/uL (2.3-7.9); NEUT % 45.8 % (47.0-73.0); PLATELET COUNT AUTOMATED 298 10*3/uL (130-400); RED BLOOD COUNT 4.64 10*6/uL (4.50-5.90); RED CELL DISTRI WIDTH 12.6 % (0-14.5); WHITE BLOOD COUNT 8.6 10*3/uL (4.8-10.8)
[2019-07-23 06:29] LABS: ACT PARTIAL THROMBO TIME 27.3 SECONDS (20.0-32.1); INTERNATIONAL NORM RATIO 0.9 (2.0-3.5)
--- NOTE | 2019-07-23 06:33 | NUR ---
CHARISSE JACKMANLOLA [id number] Please refer to the physician's history and physical for past medical history, comorbid conditions, and allergies. Diagnosis: R55 R00.1 S/P PACEMAKER INSERTION Leif Score: 21,LOW OR NO RISK WOUND DESCRIPTIONS: Dressing intact to left upper chest wall. No strikethrough drainage noted at time of assessment. Patient states he had surgery yesterday with Dr. Whitaker he has a follow up appointment in one week and also has a follow up appointment in the internal medicine clinic. Patient stated he came into the hospital because he kept passing out after surgery. Surface the patient is resting on: Isoflex SKIN PREVENTION RECOMMENDATION: 1. Pressure redistribution support surface as appropriate 2. Elevate heels 3. Remove boots/TEDS every shift and reapply 4. Head of bed 30 degrees as tolerated 5. Assess nutrition and hydration 6. Manage moisture 7. Avoid the use of containment devices while in bed 8. Use absorptive products on surfaces limit layers of linens on bed 9. Turn and reposition every 1-2 hours in bed and every 1 hour in chair as tolerated 10. Weight shifts every 15 minutes while up in chair 11. Offloading with pillows or device to keep heels elevated off bed 12. Monitor skin at least every shift 13. Inspect under medical devices twice a day WOUND TREATMENT RECOMMENDATIONS: Await post orders per Dr. Whitaker since Dr. Whitaekr did the surgery yesterday.
[2019-07-23 06:35] LABS: ALBUMIN 3.9 gm/dl (3.1-4.5); ALKALINE PHOSPHATASE 73 U/L (45-117); BUN 16 mg/dl (7-24); CHLORIDE 107 mmol/L (98-107); CHOLESTEROL 239 mg/dL (<200); FREE T4 0.86 ng/dl (0.76-1.46); HDL CHOLESTEROL 35 mg/dl (40-60); LDL CHOLESTEROL 184 mg/dL (9-159); PHOSPHOROUS 4.3 mg/dL (2.5-4.9); SGOT/AST 12 IU/L (3-35); SGPT/ALT 24 U/L (12-78); SODIUM 137 mmol/L (136-145); TOTAL PROTEIN 7.1 gm/dL (6.4-8.2); TRIGLYCERIDES 99 mg/dl (<150); VLDL CHOLESTEROL 20 mg/dL (6-40)
[2019-07-23 07:55] LABS: VITAMIN D, 25-HYDROXY 17.9 ng/mL (30-100)
--- NOTE | 2019-07-23 08:40 | NUR ---
Dr. Molina notified of wound care recommendations.
--- NOTE | 2019-07-23 09:46 | NUR ---
Brinklow given per patient request for c/o pain rated 6/10 at surgical area. Will monitor.
--- NOTE | 2019-07-23 10:30 | NUR ---
Rail Signal Worker in to talk to patient. Patient states lives at home with his sister. There are 13 basement steps in the home. Physician: [facility]acy[facility] Home health services: none Patient's level of ADLs: INDEPENDENT Patient has working utilities: yes DME: none Follow-up physician's appointment after d/c: will be made by the hospitalist nurse director upon discharge Does patient want to access PORTAL?: no Discharge plan discussed with patient. He lives at home with his sister. he is independent in his ADLs and ambulation. Discussed home health care services and he denies any home needs. He states his sister is a home health aide and can help him with dressing changes or any home needs. When medically stable he will be discharged to home. His sister will provide transportation on discharge. He states he sees Sahra Olmstead for a [employer] outsole caser. LUIS MYLES
[2019-07-23 12:00] VITALS: BP 126/62
[2019-07-23 16:00] VITALS: BP 129/66
--- NOTE | 2019-07-23 17:00 | NUR ---
Discharge instructions reviewed with patient/family. Patient receptive and verbalizes understanding. Follow-up care arranged. Written instructions given to patient/family. Patient was educated on restrictions and dressing changes to op site. He was also educated on follow up appointments with and family physician. He ambulated from unit with all personal belongings accounted for. DALE MEYER
== END 2019-07-23 18:10 | disposition home or self-care (01) | DRG 171 ==
LOC: SDC 03:57 → 4E 11:56 → SDC 13:15 → 4E 07-23 18:10
PROVIDERS: Internal Medicine; ADMIT Internal Medicine
PROC: 0JH606Z Insertion of Pacemaker, Dual Chamber into Chest Subcutaneous Tissue and Fascia, Open Approach (ICD-10-PCS; principal; 2019-07-22)
PROC: 02H63JZ Insertion of Pacemaker Lead into Right Atrium, Percutaneous Approach (ICD-10-PCS; 2019-07-22)
PROC: 02HK3JZ Insertion of Pacemaker Lead into Right Ventricle, Percutaneous Approach (ICD-10-PCS; 2019-07-22)
DX: R00.1 Bradycardia, unspecified (principal); F17.210 Nicotine dependence, cigarettes, uncomplicated; F12.10 Cannabis abuse, uncomplicated; F41.9 Anxiety disorder, unspecified; J45.909 Unspecified asthma, uncomplicated; M81.0 Age-related osteoporosis without current pathological fracture; G62.9 Polyneuropathy, unspecified; D72.829 Elevated white blood cell count, unspecified; M89.8X9 Other specified disorders of bone, unspecified site; G83.4 Cauda equina syndrome; K46.9 Unspecified abdominal hernia without obstruction or gangrene; J44.9 Chronic obstructive pulmonary disease, unspecified; G89.29 Other chronic pain; M54.9 Dorsalgia, unspecified; F32.9 Major depressive disorder, single episode, unspecified; E78.5 Hyperlipidemia, unspecified; Z88.5 Allergy status to narcotic agent; Z88.0 Allergy status to penicillin; Z88.8 Allergy status to other drugs, medicaments and biological substances; Z71.6 Tobacco abuse counseling; Z82.49 Family history of ischemic heart disease and other diseases of the circulatory system; Z83.3 Family history of diabetes mellitus; Z79.899 Other long term (current) drug therapy; Z91.030 Bee allergy status

== ENCOUNTER → 2019-08-09 | Outpatient (CLI) | payer OTHER ==
[~2019-08-09] MED LIST changes: +ALENDRONATE SOD70 M1 PO; +MAGNESIUM OXID400 MG PO; +Magnesium Oxid400 MG PO; +PROVENTIL HFA6.7 GM INH
== END | disposition home or self-care (01) ==
LOC: RESCLI 00:21
DX: B94.8 Sequelae of other specified infectious and parasitic diseases (principal); J45.909 Unspecified asthma, uncomplicated; M54.42 Lumbago with sciatica, left side; F32.0 Major depressive disorder, single episode, mild; I95.1 Orthostatic hypotension; M89.9 Disorder of bone, unspecified; M85.859 Other specified disorders of bone density and structure, unspecified thigh; G43.909 Migraine, unspecified, not intractable, without status migrainosus; F14.10 Cocaine abuse, uncomplicated; F12.10 Cannabis abuse, uncomplicated; E55.9 Vitamin D deficiency, unspecified; R00.1 Bradycardia, unspecified; Z71.6 Tobacco abuse counseling; Z79.899 Other long term (current) drug therapy

== ENCOUNTER 2019-09-02 17:56 | Inpatient (IN) | payer OTHER ==
[~2019-09-02] VITALS: Ht 175.3 cm; Wt 86.3 kg
[2019-09-02 17:57] VITALS: BP 156/76
--- NOTE | 2019-09-02 18:15 | NUR ---
DR. SANTIAGO WAS CALLED TO THE ROOM FOLLOWING ASSESSMENT. PATIENT WITH STROKE LIKE SXS. DR. SANTIAGO DOES NOT WANT TO CALL A BRAIN ATTACK ON THE PATIENT.
[2019-09-02 18:29] LABS: HEMATOCRIT 40.6 % (42.0-52.0); HEMOGLOBIN 13.6 g/dl (14.0-18.0); MEAN CELL VOLUME 95.3 fl (80.0-94.0); MEAN CORPUSCULAR HGB 31.9 pg (27.0-31.0); MEAN CORPUSCULAR HGB CONC 33.5 g/dl (33.0-37.0); MEAN PLATELET VOLUME 8.8 fl (9.6-12.3); PLATELET COUNT AUTOMATED 302 10*3/uL (130-400); RED BLOOD COUNT 4.26 10*6/uL (4.50-5.90); RED CELL DISTRI WIDTH 12.5 % (0-14.5); WHITE BLOOD COUNT 10.1 10*3/uL (4.8-10.8)
[2019-09-02 18:41] LABS: ACT PARTIAL THROMBO TIME 25.6 SECONDS (20.0-32.1); INTERNATIONAL NORM RATIO 0.9 (2.0-3.5)
[2019-09-02 18:46] LABS: LIPASE 109 U/L (73-393)
[2019-09-02 18:48] LABS: ALBUMIN 4.1 gm/dl (3.1-4.5); ALKALINE PHOSPHATASE 70 U/L (45-117); BUN 22 mg/dl (7-24); CHLORIDE 110 mmol/L (98-107); CREATININE 0.99 mg/dL (0.70-1.30); SGOT/AST 17 IU/L (3-35); SGPT/ALT 35 U/L (12-78); SODIUM 140 mmol/L (136-145); TOTAL PROTEIN 7.1 gm/dL (6.4-8.2)
[2019-09-02 18:49] LABS: ATYPICAL LYMPHS 1 % (0-0); BASOPHILS 3 % (0-1); PLATELET SUFFICIENCY NORMAL (NORMAL); TOTAL CELLS COUNTED 100 #CELLS
[2019-09-02 18:50] LABS: TROPONIN I < 0.015 ng/ml (<0.045)
--- NOTE | 2019-09-02 21:24 | NUR ---
PT WAS SEEN WALKING OUT OF HTE ER WITH HIS HEP LOCK IN PLACE AND CARDIAC LEADS IN HIS POCKET. PT STATES HE WAS GOING OUT TO SMOKE. IT WAS EXPLAINED TO THE PATIENT THAT HE CANNOT GO OUTSIDE TO SMOKE AND MD MADE AWARE AND NICITROL ORDERED AND GIVEN TO PATIENT. PT AGAIN PLACED ON THE MONITOR .
[2019-09-02 21:27] VITALS: BP 142/70
[2019-09-02 22:45] VITALS: BP 126/72
--- NOTE | 2019-09-02 22:45 | NUR ---
A 43, admitted to 4E, under the services of WILLIAM Snow DO with a diagnosis of CHEST PAIN. Chief complaint is CHEST PAIN. Patient arrived via ambulatory from ER. Monitor applied. Initial assessment completed. Vital signs taken and recorded. WILLIAM SNOW DO notified of admission to the unit. Orders received. See assessment for past medical history, medications and allergies. Patient and/or family oriented to unit. visitation policy reviewed. Clothing/patient valuable form completed. JASON DAVISON
--- NOTE | 2019-09-03 05:45 | NUR ---
PATIENT MEDICATED WITH TYLENOL 650 MG FOR COMPLAINTS OF LEG PAIN. WILL CONTINUE TO MONITOR.
[2019-09-03 06:01] LABS: URINE AMPHETAMINES < 1000 (1000ng/ml); URINE BARBITURATES < 200 (200ng/ml); URINE BENZODIAZEPINES < 200 (200ng/ml); URINE CANNABINOIDS (THC) > 50 (50ng/ml); URINE COCAINE < 300 (300ng/ml); URINE METHADONE < 300 (300ng/ml); URINE OPIATES < 300 (300ng/ml)
[2019-09-03 06:02] LABS: URINE PHENCYCLIDINE < 25 (25ng/ml)
[2019-09-03 06:22] LABS: BASO # 0.1 10*3/uL (0.0-0.1); BASO % 1.1 % (0.0-1.0); EOS # 0.3 10*3/uL (0.0-0.4); EOS % 4.1 % (1.0-4.0); HEMATOCRIT 39.3 % (42.0-52.0); HEMOGLOBIN 13.1 g/dl (14.0-18.0); LYMPH % 35.9 % (27.0-41.0); MEAN CELL VOLUME 94.9 fl (80.0-94.0); MEAN CORPUSCULAR HGB 31.6 pg (27.0-31.0); MEAN CORPUSCULAR HGB CONC 33.3 g/dl (33.0-37.0); MEAN PLATELET VOLUME 9.2 fl (9.6-12.3); MONO # 0.5 10*3/uL (0.1-1.0); MONO % 6.1 % (3.0-9.0); NEUT # 4.4 10*3/uL (2.3-7.9); NEUT % 52.4 % (47.0-73.0); PLATELET COUNT AUTOMATED 281 10*3/uL (130-400); RED BLOOD COUNT 4.14 10*6/uL (4.50-5.90); RED CELL DISTRI WIDTH 12.6 % (0-14.5); WHITE BLOOD COUNT 8.4 10*3/uL (4.8-10.8)
--- NOTE | 2019-09-03 06:43 | NUR ---
DR. MIRANDA NOTIFIED OF CONSULT FOR PATIENT FOR CHEST PAIN, RECENT PACEMAKER INSERTION AND PATIENT KNOWN TO HIM. HE WILL SEE HIM THIS MORNING.
[2019-09-03 06:47] LABS: BUN 19 mg/dl (7-24); CHLORIDE 109 mmol/L (98-107); CHOLESTEROL 239 mg/dL (<200); CREATININE 0.92 mg/dL (0.70-1.30); POTASSIUM 3.8 mmol/L (3.5-5.1); SODIUM 140 mmol/L (136-145); TRIGLYCERIDES 197 mg/dl (<150); VLDL CHOLESTEROL 39 mg/dL (6-40)
[2019-09-03 06:55] LABS: FREE T4 0.75 ng/dl (0.76-1.46); HDL CHOLESTEROL 30 mg/dl (40-60); LDL CHOLESTEROL 170 mg/dL (9-159)
[2019-09-03 07:44] LABS: VITAMIN D, 25-HYDROXY 27.2 ng/mL (30-100)
--- NOTE | 2019-09-03 07:51 | NUR ---
PT WAS AWAKE DURING SHIFT CHANGE ROUNDS. REQUESTED AND WAS GIVEN CUP OF ICE/JOSE NIRAV. DR MEDINA SAW HIM AND TALKED WITH RESIDENT DR WOODS. PACEMAKER REP HAS NOT CALLED BACK WITH ETA. Shift chart check completed. 24 HR chart check completed.
[2019-09-03 08:00] VITALS: BP 118/80
[2019-09-03 08:25] VITALS: BP 120/80
--- NOTE | 2019-09-03 08:40 | NUR ---
ON ASSESSMENT PATIENT IS ALERT AND ORIENTED, SHOWS DEFINITE LEFT SIDED WEAKNESS. PT WILL HAVE BRAIN CTA. HE HAD EATEN A FEW BITES OF BREAKFAST. REQUESTED HE NOT EAT ANYTHING FURTHER TILL HIS TESTING DONE AND HE UNDERSTANDS. SEE ALL APPROPRIATE INTERVENTIONS.
--- NOTE | 2019-09-03 08:46 | NUR ---
PT TO RADIOLOGY FOR BRAIN CTA AND ULTRASOUND OF LOWER EXTREMITIES.
--- NOTE | 2019-09-03 09:00 | NUR ---
Leacher in to talk to patient. Patient states lives at home with family. There are few steps in the home. Physician: resident clinic [facility] Home health services: none Patient's level of ADLs: BEDFAST Patient has working utilities: all working DME: none Follow-up physician's appointment after d/c: will be made by hospitalist nruse director upon discharge Does patient want to access PORTAL?: no Discharge plan discussed with patient, he lives at home, is independent in adls and ambulation, he states he will return home when medically stable and denies any home needs. CARI PHILIPPE
[2019-09-03] MEDS ORDERED: VITAMIN D32000 UNI1 PO (09:27)
[2019-09-03] MEDS ORDERED: CALCIUM + VITA1 EAC2 PO (09:27)
--- NOTE | 2019-09-03 09:46 | NUR ---
PT HAS RETURNED FROM RADIOLOGY. MORNING MEDS GIVEN. PT DECLINED HIS LEXAPRO, SAYING "THEY STOPPED THAT AND STARTED ME ON CYMBALTA". HE ALSO SAYS HE TAKES A VITAMIN D AND A CALCIUM/VIT D SUPPLEMENT. I REVIEWED HIS MED REC WITH HIM, ADDING THESE TWO AND DELETING THE LEXAPRO.
--- NOTE | 2019-09-03 10:45 | NUR ---
DR MIRANDA HERE. SAYS PACEMAKER DOES NOT NEED INTERROGATED. DAVIN FROM [facility] HAD JUST CALLED AND SAID HE WOULDN'T BE AVAILABLE UNTIL TOMORROW. DISCUSSED WITH HIM PATIENT'S LEFT SIDED WEAKNESS, NEGATIVE CT AND CTA. HE SUGGESTS MRA. WHEN I QUESTIONED ABOUT MRA AND PACEMAKER HE SAID TO CALL THE PACEMAKER REP BACK AND ASK IF IT'S MRI/MRA SAFE MOST OF THE NEW ONES ARE. DRY CELL AND BATTERY ASSEMBLER IS ATTEMPTING TO REACH THE REP AGAIN.
--- NOTE | 2019-09-03 11:00 | NUR ---
UPDATED DR WOODS ON DR MIRANDA'S SUGGESTION AND WILL UPDATE HER WHEN I HEAR FROM [employer] REP.
--- NOTE | 2019-09-03 11:24 | NUR ---
PT UPDATED ON PLAN FOR POSSIBLE MRA IF IT'S DETERMINED THAT HIS PACEMAKER IS MRA/MRI SAFE. ALSO INFORMED HIM IT MAY NOT BE UNTIL TOMORROW AND PT UNDERSTANDS.
--- NOTE | 2019-09-03 11:34 | NUR ---
PACEMAKER REP DID CALL ME BACK. HE SAID THE PACEMAKER IS MRI/MRA SAFE BUT THERE HAS TO BE A PROTOCOL IN PLACE, HE HAS TO BE HERE WHEN THE MRI/MRA IS DONE TO REPROGRAM PACEMAKER AFTER THE TEST IS DONE AND HE CAN'T BE HERE TODAY AT ALL. I ATTEMPTED TO CALL MRI TO SEE IF WE HAVE THAT PROTOCOL IN PLACE AND LEFT A VOICEMAIL FOR THEM.
--- NOTE | 2019-09-03 11:43 | NUR ---
PER DION MOSS WE HAVE NO PROTOCOL FOR PERFORMING ANY MRI/MRA'S ON PATIENT'S WITH PACEMAKERS. WE ARE CALLING THE [employer] PACEMAKER REP AND INFORMING HIM.
[2019-09-03 12:00] VITALS: BP 136/88
--- NOTE | 2019-09-03 12:07 | NUR ---
DAVIN, FROM [employer] CALLED BACK AND SAID THAT ALESHA AND NURA HAVE THE PROTOCOLS FOR PACEMAKERS AND MRI'S.
--- NOTE | 2019-09-03 14:54 | NUR ---
DR KWOK VISITED EARLIER. DISCHARGE INSTRUCTIONS TO PT AND HIS SISTER. MONITOR AND HEP LOCK REMOVED. DISCHARGED IN STABLE CONDITION,VIA W/C TO FRONT OF HOSPITAL TO HIS SISTER'S CAR.
== END 2019-09-03 15:12 | disposition home or self-care (01) | DRG 203 ==
LOC: ED 17:56 → 4E 21:52 → EDHOLD 21:52 → 4E 22:02
PROVIDERS: Emergency Medicine; Internal Medicine; ADMIT Internal Medicine
DX: M94.0 Chondrocostal junction syndrome [Tietze] (principal); F19.10 Other psychoactive substance abuse, uncomplicated; F32.9 Major depressive disorder, single episode, unspecified; E87.8 Other disorders of electrolyte and fluid balance, not elsewhere classified; D53.9 Nutritional anemia, unspecified; K21.9 Gastro-esophageal reflux disease without esophagitis; G89.29 Other chronic pain; M54.9 Dorsalgia, unspecified; E78.5 Hyperlipidemia, unspecified; F17.210 Nicotine dependence, cigarettes, uncomplicated; J45.909 Unspecified asthma, uncomplicated; M81.0 Age-related osteoporosis without current pathological fracture; G62.9 Polyneuropathy, unspecified; K59.00 Constipation, unspecified; F41.9 Anxiety disorder, unspecified; I49.5 Sick sinus syndrome; E66.9 Obesity, unspecified; Z68.28 Body mass index [BMI] 28.0-28.9, adult; Z95.0 Presence of cardiac pacemaker; Z82.49 Family history of ischemic heart disease and other diseases of the circulatory system; Z88.5 Allergy status to narcotic agent; Z88.0 Allergy status to penicillin; Z88.8 Allergy status to other drugs, medicaments and biological substances; Z91.030 Bee allergy status; Z79.899 Other long term (current) drug therapy; Z71.6 Tobacco abuse counseling

== ENCOUNTER → 2019-10-09 | Outpatient (CLI) | payer OTHER ==
[~2019-10-09] MED LIST changes: +CALCIUM + VITA1 EAC2 PO; +VITAMIN D32000 UNI1 PO
== END | disposition home or self-care (01) ==
LOC: RESCLI 01:06
DX: J45.909 Unspecified asthma, uncomplicated (principal); M54.42 Lumbago with sciatica, left side; F32.0 Major depressive disorder, single episode, mild; I95.1 Orthostatic hypotension; M85.859 Other specified disorders of bone density and structure, unspecified thigh; G43.909 Migraine, unspecified, not intractable, without status migrainosus; E55.9 Vitamin D deficiency, unspecified; R00.1 Bradycardia, unspecified; Z71.6 Tobacco abuse counseling; Z79.899 Other long term (current) drug therapy; Z88.8 Allergy status to other drugs, medicaments and biological substances

== ENCOUNTER 2019-11-26 00:19 | Emergency (ER) | payer OTHER ==
[~2019-11-26] VITALS: Ht 177.8 cm
[2019-11-26 00:45] LABS: BASO # 0.1 10*3/uL (0.0-0.1); BASO % 0.7 % (0.0-1.0); EOS # 0.4 10*3/uL (0.0-0.4); EOS % 2.5 % (1.0-4.0); HEMATOCRIT 40.1 % (42.0-52.0); HEMOGLOBIN 13.4 g/dl (14.0-18.0); LYMPH # 3.7 10*3/uL (1.3-4.4); LYMPH % 25.1 % (27.0-41.0); MEAN CELL VOLUME 95.5 fl (80.0-94.0); MEAN CORPUSCULAR HGB 31.9 pg (27.0-31.0); MEAN CORPUSCULAR HGB CONC 33.4 g/dl (33.0-37.0); MEAN PLATELET VOLUME 8.8 fl (9.6-12.3); MONO % 6.9 % (3.0-9.0); NEUT # 9.6 10*3/uL (2.3-7.9); NEUT % 64.1 % (47.0-73.0); PLATELET COUNT AUTOMATED 309 10*3/uL (130-400); RED CELL DISTRI WIDTH 12.8 % (0-14.5); WHITE BLOOD COUNT 14.9 10*3/uL (4.8-10.8)
[2019-11-26 00:55] LABS: ACT PARTIAL THROMBO TIME 22.8 SECONDS (20.0-32.1); INTERNATIONAL NORM RATIO 0.9 (2.0-3.5)
[2019-11-26 01:04] LABS: ALKALINE PHOSPHATASE 61 U/L (45-117); BUN 26 mg/dl (7-24); CHLORIDE 108 mmol/L (98-107); CREATININE 1.14 mg/dL (0.70-1.30); POTASSIUM 3.8 mmol/L (3.5-5.1); SGOT/AST 10 IU/L (3-35); SGPT/ALT 25 U/L (12-78); SODIUM 140 mmol/L (136-145); TOTAL PROTEIN 6.8 gm/dL (6.4-8.2)
[2019-11-26 01:05] LABS: TROPONIN I < 0.015 ng/ml (<0.045)
[2019-11-26 01:41] VITALS: BP 133/75
[2019-11-26 03:02] LABS: URINE AMPHETAMINES < 1000 (1000ng/ml); URINE BARBITURATES < 200 (200ng/ml); URINE BENZODIAZEPINES < 200 (200ng/ml); URINE CANNABINOIDS (THC) > 50 (50ng/ml); URINE COCAINE > 300 (300ng/ml); URINE METHADONE < 300 (300ng/ml); URINE OPIATES < 300 (300ng/ml)
[2019-11-26 03:04] LABS: URINE PHENCYCLIDINE < 25 (25ng/ml)
== END 2019-11-26 06:41 | disposition home or self-care (01) ==
LOC: ED 00:19
PROVIDERS: Emergency Medicine
DX: F19.121 Other psychoactive substance abuse with intoxication delirium (principal); F32.9 Major depressive disorder, single episode, unspecified; F41.9 Anxiety disorder, unspecified; G89.29 Other chronic pain; M19.90 Unspecified osteoarthritis, unspecified site; F12.10 Cannabis abuse, uncomplicated; F14.10 Cocaine abuse, uncomplicated; F17.200 Nicotine dependence, unspecified, uncomplicated; Z91.030 Bee allergy status; Z88.0 Allergy status to penicillin; Z88.8 Allergy status to other drugs, medicaments and biological substances; Z88.6 Allergy status to analgesic agent; Z79.899 Other long term (current) drug therapy; Z95.0 Presence of cardiac pacemaker

== ENCOUNTER → 2020-03-03 | Outpatient (CLI) | payer OTHER | END | disposition home or self-care (01) | LOC: RESCLI 02:37 | DX: M89.9 Disorder of bone, unspecified (principal); J45.909 Unspecified asthma, uncomplicated; M54.42 Lumbago with sciatica, left side; F32.0 Major depressive disorder, single episode, mild; E55.9 Vitamin D deficiency, unspecified; R00.1 Bradycardia, unspecified; R29.90 Unspecified symptoms and signs involving the nervous system; Z71.6 Tobacco abuse counseling; Z79.899 Other long term (current) drug therapy; Z98.890 Other specified postprocedural states; Z95.0 Presence of cardiac pacemaker; Z91.030 Bee allergy status ==

== ENCOUNTER → 2020-07-21 | Outpatient (CLI) | payer OTHER | END | disposition home or self-care (01) | LOC: RESCLI 13:10 | PROVIDERS: ATTEND Internal Medicine | DX: H54.62 Unqualified visual loss, left eye, normal vision right eye (principal); M54.42 Lumbago with sciatica, left side; M89.9 Disorder of bone, unspecified; E55.9 Vitamin D deficiency, unspecified; J45.909 Unspecified asthma, uncomplicated; F32.0 Major depressive disorder, single episode, mild; Z71.6 Tobacco abuse counseling ==

== ENCOUNTER 2020-09-22 10:36 | Emergency (ER) | payer OTHER ==
[~2020-09-22] VITALS: Wt 95.7 kg
[2020-09-22 10:51] VITALS: BP 129/62
== END 2020-09-22 13:11 | disposition home or self-care (01) ==
LOC: ED 10:36
DX: S63.501A Unspecified sprain of right wrist, initial encounter (principal); Z91.030 Bee allergy status; Z88.0 Allergy status to penicillin; Z88.8 Allergy status to other drugs, medicaments and biological substances; Z79.899 Other long term (current) drug therapy; Z98.890 Other specified postprocedural states; W18.39XA Other fall on same level, initial encounter; Y93.89 Activity, other specified; Y92.89 Other specified places as the place of occurrence of the external cause; Y99.8 Other external cause status

== ENCOUNTER 2020-10-18 15:34 | Emergency (ER) | payer OTHER ==
[~2020-10-18] VITALS: Wt 95.7 kg
[2020-10-18 15:41] VITALS: BP 119/72
[2020-10-18] MEDS ORDERED: PREDNISONE50 MG PO (15:52)
== END 2020-10-18 15:57 | disposition home or self-care (01) ==
LOC: ED 15:34
DX: L25.9 Unspecified contact dermatitis, unspecified cause (principal); F32.9 Major depressive disorder, single episode, unspecified; F41.9 Anxiety disorder, unspecified; M19.90 Unspecified osteoarthritis, unspecified site; F17.200 Nicotine dependence, unspecified, uncomplicated; Z91.030 Bee allergy status; Z88.0 Allergy status to penicillin; Z88.8 Allergy status to other drugs, medicaments and biological substances; Z88.6 Allergy status to analgesic agent; Z79.899 Other long term (current) drug therapy; Z95.0 Presence of cardiac pacemaker

== ENCOUNTER → 2020-10-21 | Outpatient (CLI) | payer OTHER | END | disposition home or self-care (01) | LOC: RESCLI 02:03 | PROVIDERS: ATTEND Internal Medicine Nephrology | DX: M25.531 Pain in right wrist (principal); M54.42 Lumbago with sciatica, left side; M89.9 Disorder of bone, unspecified; E55.9 Vitamin D deficiency, unspecified; J45.909 Unspecified asthma, uncomplicated; G89.29 Other chronic pain; Z79.899 Other long term (current) drug therapy; Z95.0 Presence of cardiac pacemaker ==

== ENCOUNTER 2020-12-07 10:19 | Observation (INO) | payer OTHER ==
[~2020-12-07] VITALS: Ht 175.2 cm; Wt 95.7 kg
[2020-12-07 10:26] VITALS: BP 116/69
[2020-12-07 10:53] LABS: BASO # 0.1 10*3/uL (0.0-0.1); BASO % 0.9 % (0.0-1.0); EOS # 0.2 10*3/uL (0.0-0.4); EOS % 2.5 % (1.0-4.0); HEMATOCRIT 44.2 % (42.0-52.0); LYMPH # 2.6 10*3/uL (1.3-4.4); LYMPH % 32.5 % (27.0-41.0); MEAN CELL VOLUME 90.4 fl (80.0-94.0); MEAN CORPUSCULAR HGB 30.7 pg (27.0-31.0); MEAN CORPUSCULAR HGB CONC 33.9 g/dl (33.0-37.0); MEAN PLATELET VOLUME 8.4 fl (9.6-12.3); MONO # 0.7 10*3/uL (0.1-1.0); MONO % 8.5 % (3.0-9.0); NEUT # 4.4 10*3/uL (2.3-7.9); NEUT % 55.3 % (47.0-73.0); PLATELET COUNT AUTOMATED 373 10*3/uL (130-400); RED BLOOD COUNT 4.89 10*6/uL (4.50-5.90); WHITE BLOOD COUNT 7.9 10*3/uL (4.8-10.8)
[2020-12-07 11:04] LABS: ACT PARTIAL THROMBO TIME 26.8 SECONDS (20.0-32.1)
[2020-12-07 11:13] LABS: ALBUMIN 4.4 gm/dl (3.1-4.5); ALKALINE PHOSPHATASE 85 U/L (45-117); BUN 13 mg/dl (7-24); CHLORIDE 107 mmol/L (98-107); CREATININE 0.91 mg/dL (0.70-1.30); LIPASE 61 U/L (73-393); POTASSIUM 3.6 mmol/L (3.5-5.1); SGOT/AST 13 IU/L (3-35); SGPT/ALT 25 U/L (12-78); SODIUM 137 mmol/L (136-145); TOTAL PROTEIN 7.7 gm/dL (6.4-8.2)
[2020-12-07 11:14] LABS: TROPONIN I < 0.015 ng/ml (<0.045)
== END 2020-12-07 15:18 | disposition left against medical advice (07) ==
LOC: ED 10:19 → EDHOLD 13:24
PROVIDERS: Emergency Medicine; ADMIT Student in an Organized Health Care Education/Training Program; ATTEND Student in an Organized Health Care Education/Training Program
DX: R06.02 Shortness of breath (principal); Z20.822 Contact with and (suspected) exposure to COVID-19; R42 Dizziness and giddiness; F17.200 Nicotine dependence, unspecified, uncomplicated; F12.90 Cannabis use, unspecified, uncomplicated; F14.90 Cocaine use, unspecified, uncomplicated; Z95.5 Presence of coronary angioplasty implant and graft; Z95.0 Presence of cardiac pacemaker; Z98.890 Other specified postprocedural states

== ENCOUNTER 2021-01-12 11:32 | Emergency (ER) | payer OTHER ==
[~2021-01-12] VITALS: Wt 95.7 kg
[2021-01-12 11:42] VITALS: BP 141/93
[2021-01-12] MEDS ORDERED: ZOFRAN4 MG PO (14:03)
[2021-01-12] MEDS ORDERED: MEDROL DOSEPAK4 MG PO (14:03)
== END 2021-01-12 14:11 | disposition home or self-care (01) ==
LOC: ED 11:32
DX: M25.50 Pain in unspecified joint (principal); Z91.030 Bee allergy status; Z88.0 Allergy status to penicillin; Z88.8 Allergy status to other drugs, medicaments and biological substances; Z88.6 Allergy status to analgesic agent; Z79.899 Other long term (current) drug therapy; Z98.890 Other specified postprocedural states

== ENCOUNTER 2021-04-05 21:15 | Emergency (ER) | payer OTHER ==
[~2021-04-05 21:15] MED LIST changes: +ZOFRAN4 MG PO
[2021-04-05 21:37] VITALS: BP 114/88
== END 2021-04-05 23:10 | disposition home or self-care (01) ==
LOC: ED 21:15
DX: Z20.822 Contact with and (suspected) exposure to COVID-19 (principal); F17.200 Nicotine dependence, unspecified, uncomplicated; Z91.030 Bee allergy status; Z88.0 Allergy status to penicillin; Z88.6 Allergy status to analgesic agent; Z88.8 Allergy status to other drugs, medicaments and biological substances; Z79.899 Other long term (current) drug therapy; Z95.0 Presence of cardiac pacemaker

== ENCOUNTER 2021-05-18 14:09 | Emergency (ER) | payer OTHER ==
[~2021-05-18] VITALS: Ht 175.2 cm; Wt 68.0 kg
[2021-05-18 14:23] VITALS: BP 131/71
[2021-05-18 14:40] LABS: BASO % 0.3 % (0.0-1.0); EOS % 0.1 % (1.0-4.0); HEMATOCRIT 42.7 % (42.0-52.0); LYMPH # 1.1 10*3/uL (1.3-4.4); LYMPH % 12.5 % (27.0-41.0); MEAN CELL VOLUME 90.5 fl (80.0-94.0); MEAN CORPUSCULAR HGB 30.5 pg (27.0-31.0); MEAN CORPUSCULAR HGB CONC 33.7 g/dl (33.0-37.0); MEAN PLATELET VOLUME 8.8 fl (9.6-12.3); MONO # 1.2 10*3/uL (0.1-1.0); MONO % 13.3 % (3.0-9.0); NEUT # 6.5 10*3/uL (2.3-7.9); NEUT % 73.5 % (47.0-73.0); PLATELET COUNT AUTOMATED 256 10*3/uL (130-400); RED BLOOD COUNT 4.72 10*6/uL (4.50-5.90); RED CELL DISTRI WIDTH 13.4 % (0-14.5); WHITE BLOOD COUNT 8.9 10*3/uL (4.8-10.8)
[2021-05-18 14:56] LABS: ALBUMIN 3.9 gm/dl (3.1-4.5); ALKALINE PHOSPHATASE 78 U/L (45-117); BUN 13 mg/dl (7-24); CHLORIDE 104 mmol/L (98-107); CREATININE 0.92 mg/dL (0.70-1.30); POTASSIUM 3.8 mmol/L (3.5-5.1); SGOT/AST 19 IU/L (3-35); SGPT/ALT 27 U/L (12-78); SODIUM 136 mmol/L (136-145); TOTAL PROTEIN 7.5 gm/dL (6.4-8.2)
[2021-05-18 15:05] LABS: TROPONIN I < 0.015 ng/ml (<0.045)
[2021-05-18] MEDS ORDERED: CIPRODEX 0.3%-7.5 ML OT (16:08)
[2021-05-18] MEDS ORDERED: ZOFRAN4 MG PO (16:17)
== END 2021-05-18 17:00 | disposition home or self-care (01) ==
LOC: ED 14:09
PROVIDERS: Student in an Organized Health Care Education/Training Program
DX: U07.1 COVID-19 (principal); H60.92 Unspecified otitis externa, left ear; F17.200 Nicotine dependence, unspecified, uncomplicated; Z88.0 Allergy status to penicillin; Z91.030 Bee allergy status; Z79.899 Other long term (current) drug therapy

== ENCOUNTER → 2021-10-19 | Outpatient (CLI) | payer OTHER ==
[~2021-10-19] MED LIST changes: +CIPRODEX 0.3%-7.5 ML OT
[2021-10-19 14:49] LABS: ALKALINE PHOSPHATASE 80 U/L (45-117); BUN 19 mg/dl (7-24); CHLORIDE 109 mmol/L (98-107); CHOLESTEROL 268 mg/dL (<200); CREATININE 0.88 mg/dL (0.70-1.30); LDL CHOLESTEROL 202 mg/dL (9-159); POTASSIUM 4.1 mmol/L (3.5-5.1); SGOT/AST 25 IU/L (3-35); SGPT/ALT 44 U/L (12-78); SODIUM 138 mmol/L (136-145); TOTAL PROTEIN 7.6 gm/dL (6.4-8.2); TRIGLYCERIDES 129 mg/dl (<150)
== END | disposition home or self-care (01) ==
LOC: RESCLI 01:04
PROVIDERS: ATTEND Internal Medicine
DX: T82.9XXA Unspecified complication of cardiac and vascular prosthetic device, implant and graft, initial encounter (principal); M54.42 Lumbago with sciatica, left side; M89.9 Disorder of bone, unspecified; E55.9 Vitamin D deficiency, unspecified; J45.909 Unspecified asthma, uncomplicated; F32.0 Major depressive disorder, single episode, mild; N52.9 Male erectile dysfunction, unspecified; R35.0 Frequency of micturition; X58.XXXA Exposure to other specified factors, initial encounter; Z71.6 Tobacco abuse counseling; Z79.899 Other long term (current) drug therapy

== ENCOUNTER 2022-02-09 14:01 | Emergency (ER) | payer OTHER ==
[~2022-02-09] VITALS: Ht 175.2 cm; Wt 72.6 kg
[2022-02-09 14:22] VITALS: BP 127/54
[2022-02-09 15:15] LABS: BASO # 0.1 10*3/uL (0.0-0.1); BASO % 1.2 % (0.0-1.0); EOS # 0.3 10*3/uL (0.0-0.4); EOS % 4.8 % (1.0-4.0); HEMATOCRIT 37.2 % (42.0-52.0); LYMPH # 2.5 10*3/uL (1.3-4.4); MEAN CELL VOLUME 92.3 fl (80.0-94.0); MEAN CORPUSCULAR HGB 30.8 pg (27.0-31.0); MEAN CORPUSCULAR HGB CONC 33.3 g/dl (33.0-37.0); MEAN PLATELET VOLUME 8.7 fl (9.6-12.3); MONO # 0.5 10*3/uL (0.1-1.0); MONO % 8.1 % (3.0-9.0); NEUT # 2.6 10*3/uL (2.3-7.9); NEUT % 43.7 % (47.0-73.0); PLATELET COUNT AUTOMATED 270 10*3/uL (130-400); RED BLOOD COUNT 4.03 10*6/uL (4.50-5.90); RED CELL DISTRI WIDTH 12.8 % (0-14.5)
[2022-02-09 15:31] LABS: ALKALINE PHOSPHATASE 66 U/L (45-117); BUN 17 mg/dl (7-24); CHLORIDE 108 mmol/L (98-107); CREATININE 0.86 mg/dL (0.70-1.30); POTASSIUM 3.7 mmol/L (3.5-5.1); SGOT/AST 56 IU/L (3-35); SGPT/ALT 35 U/L (12-78); SODIUM 142 mmol/L (136-145)
[2022-02-09 15:41] LABS: INTERNATIONAL NORM RATIO 0.9 (2.0-3.5)
[2022-02-09] MEDS ORDERED: MEDROL DOSEPAK4 MG PO (18:40)
== END 2022-02-09 19:00 | disposition home or self-care (01) ==
LOC: ED 14:01
PROVIDERS: Physician Assistant
DX: M25.59 Pain in other specified joint (principal); Z91.030 Bee allergy status; Z88.0 Allergy status to penicillin; Z88.8 Allergy status to other drugs, medicaments and biological substances; Z79.899 Other long term (current) drug therapy; Z87.891 Personal history of nicotine dependence

== ENCOUNTER → 2022-02-16 | Outpatient (CLI) | payer OTHER | END | disposition home or self-care (01) | LOC: RESCLI 11:30 | PROVIDERS: ATTEND Family Medicine | DX: M79.602 Pain in left arm (principal); F14.10 Cocaine abuse, uncomplicated; F12.10 Cannabis abuse, uncomplicated; J45.909 Unspecified asthma, uncomplicated; F32.0 Major depressive disorder, single episode, mild; M85.80 Other specified disorders of bone density and structure, unspecified site; M54.41 Lumbago with sciatica, right side; M54.42 Lumbago with sciatica, left side; Z79.899 Other long term (current) drug therapy; Z88.0 Allergy status to penicillin; Z88.8 Allergy status to other drugs, medicaments and biological substances ==

== ENCOUNTER → 2022-02-17 | Outpatient (CLI) | payer OTHER | END | disposition home or self-care (01) | LOC: US 11:30 | PROVIDERS: ATTEND Internal Medicine | DX: M79.602 Pain in left arm (principal) ==

== ENCOUNTER → 2022-03-02 | Outpatient (CLI) | payer OTHER | END | disposition home or self-care (01) | LOC: RESCLI 02:23 | PROVIDERS: ATTEND Internal Medicine | DX: R20.2 Paresthesia of skin (principal); R20.0 Anesthesia of skin; Z91.030 Bee allergy status; N52.9 Male erectile dysfunction, unspecified; M54.42 Lumbago with sciatica, left side; F32.0 Major depressive disorder, single episode, mild; J45.909 Unspecified asthma, uncomplicated; M85.80 Other specified disorders of bone density and structure, unspecified site; Z88.0 Allergy status to penicillin; Z88.8 Allergy status to other drugs, medicaments and biological substances; Z79.899 Other long term (current) drug therapy ==

== ENCOUNTER 2022-03-19 14:00 | Emergency (ER) | payer OTHER ==
[~2022-03-19] VITALS: Ht 175.2 cm; Wt 528.4 kg
[2022-03-19 14:09] VITALS: BP 116/81
[2022-03-19] MEDS ORDERED: PREDNISONE10 MG PO (14:18)
== END 2022-03-19 14:19 | disposition home or self-care (01) ==
LOC: ED 14:00
DX: L23.7 Allergic contact dermatitis due to plants, except food (principal); F17.200 Nicotine dependence, unspecified, uncomplicated; Z79.899 Other long term (current) drug therapy; Z91.030 Bee allergy status; Z88.0 Allergy status to penicillin; Z88.5 Allergy status to narcotic agent

== ENCOUNTER → 2022-05-23 | Outpatient (CLI) | payer OTHER ==
[2022-05-23 12:09] LABS: BUN 15 mg/dl (7-24); CHLORIDE 108 mmol/L (98-107); CREATININE 0.86 mg/dL (0.70-1.30); SODIUM 138 mmol/L (136-145)
== END ==
LOC: LAB 11:23
PROVIDERS: Internal Medicine; ATTEND Internal Medicine
DX: U07.1 COVID-19 (principal)

== ENCOUNTER → 2022-06-29 | Outpatient (CLI) | payer OTHER | END | disposition home or self-care (01) | LOC: RESCLI 00:33 | PROVIDERS: ATTEND Internal Medicine | DX: J45.909 Unspecified asthma, uncomplicated (principal); M54.41 Lumbago with sciatica, right side; M54.42 Lumbago with sciatica, left side; G43.909 Migraine, unspecified, not intractable, without status migrainosus; M85.88 Other specified disorders of bone density and structure, other site; Z98.890 Other specified postprocedural states; Z95.0 Presence of cardiac pacemaker; Z87.891 Personal history of nicotine dependence; Z72.89 Other problems related to lifestyle; Z88.0 Allergy status to penicillin; Z88.5 Allergy status to narcotic agent; Z91.030 Bee allergy status; Z82.49 Family history of ischemic heart disease and other diseases of the circulatory system; Z79.899 Other long term (current) drug therapy ==

== ENCOUNTER → 2022-08-22 | Outpatient (CLI) | payer OTHER | END | disposition home or self-care (01) | LOC: COVID19 13:15 | PROVIDERS: ATTEND Internal Medicine | DX: Z20.822 Contact with and (suspected) exposure to COVID-19 (principal); J11.1 Influenza due to unidentified influenza virus with other respiratory manifestations ==

== ENCOUNTER 2022-11-21 22:12 | Emergency (ER) | payer OTHER ==
[~2022-11-21] VITALS: Ht 175.2 cm; Wt 72.6 kg
[2022-11-21 22:27] VITALS: BP 128/63
[2022-11-22 01:29] LABS: BILIRUBIN Negative (Negative); BLOOD Negative (Negative); CLARITY Clear (Clear); COLOR Yellow (Yellow); GLUCOSE Negative (Negative); KETONE Trace (Negative); LEUKO ESTERASE Negative (Negative); NITRITE Negative (Negative); PH 6.5 (4.5-8.0); SPECIFIC GRAVITY >= 1.030 (1.001-1.030)
[2022-11-22 01:31] LABS: ALKALINE PHOSPHATASE 63 U/L (46-116); BUN 15 mg/dl (9-23); CHLORIDE 109 mmol/L (98-107); POTASSIUM 3.6 mmol/L (3.4-5.1); SGPT/ALT 24 U/L (10-49)
[2022-11-22 01:54] LABS: BACTERIA TRACE
[2022-11-22 02:35] LABS: BASO # 0.1 10*3/uL (0.0-0.1); BASO % 1.2 % (0.0-1.0); EOS # 0.2 10*3/uL (0.0-0.4); EOS % 2.6 % (1.0-4.0); HEMATOCRIT 36.1 % (42.0-52.0); LYMPH # 3.6 10*3/uL (1.3-4.4); LYMPH % 40.8 % (27.0-41.0); MEAN CELL VOLUME 98.9 fl (80.0-94.0); MEAN CORPUSCULAR HGB 35.6 pg (27.0-31.0); MEAN PLATELET VOLUME 8.9 fl (9.6-12.3); MONO # 0.8 10*3/uL (0.1-1.0); NEUT # 4.1 10*3/uL (2.3-7.9); NEUT % 46.2 % (47.0-73.0); PLATELET COUNT AUTOMATED 271 10*3/uL (130-400); RED BLOOD COUNT 3.65 10*6/uL (4.50-5.90); RED CELL DISTRI WIDTH 14.8 % (0-14.5); WHITE BLOOD COUNT 8.9 10*3/uL (4.8-10.8)
[2022-11-22] MEDS ORDERED: VIBRAMYCIN100 MG PO (02:54)
== END 2022-11-22 02:58 | disposition home or self-care (01) ==
LOC: ED 22:12
PROVIDERS: Emergency Medicine
DX: I88.9 Nonspecific lymphadenitis, unspecified (principal); F41.9 Anxiety disorder, unspecified; E78.5 Hyperlipidemia, unspecified; D64.9 Anemia, unspecified; M81.0 Age-related osteoporosis without current pathological fracture; G62.9 Polyneuropathy, unspecified; F32.A Depression, unspecified; Z91.030 Bee allergy status; Z88.0 Allergy status to penicillin; Z88.5 Allergy status to narcotic agent; Z88.8 Allergy status to other drugs, medicaments and biological substances; Z86.16 Personal history of COVID-19; M19.90 Unspecified osteoarthritis, unspecified site; Z98.890 Other specified postprocedural states; F17.200 Nicotine dependence, unspecified, uncomplicated; F19.10 Other psychoactive substance abuse, uncomplicated; F12.90 Cannabis use, unspecified, uncomplicated

== ENCOUNTER → 2022-11-30 | Outpatient (CLI) | payer OTHER | END | disposition home or self-care (01) | LOC: RESCLI 01:25 | PROVIDERS: ATTEND Student in an Organized Health Care Education/Training Program | DX: R19.09 Other intra-abdominal and pelvic swelling, mass and lump (principal); Z95.0 Presence of cardiac pacemaker; G62.9 Polyneuropathy, unspecified; Z12.11 Encounter for screening for malignant neoplasm of colon; F17.200 Nicotine dependence, unspecified, uncomplicated; Z71.6 Tobacco abuse counseling; F19.10 Other psychoactive substance abuse, uncomplicated; Z91.030 Bee allergy status; J45.909 Unspecified asthma, uncomplicated; M54.42 Lumbago with sciatica, left side; M85.80 Other specified disorders of bone density and structure, unspecified site; Z98.890 Other specified postprocedural states; Z72.89 Other problems related to lifestyle; Z88.0 Allergy status to penicillin; Z88.5 Allergy status to narcotic agent; Z88.8 Allergy status to other drugs, medicaments and biological substances; Z95.5 Presence of coronary angioplasty implant and graft; Z79.899 Other long term (current) drug therapy ==

== ENCOUNTER → 2022-12-29 | Day surgery (SDC) | payer OTHER ==
[~2022-12-29] VITALS: Ht 175.2 cm; Wt 83.0 kg
[2022-12-29 10:30] VITALS: BP 117/58
[2022-12-29 11:37] VITALS: BP 108/74
[2022-12-29 11:52] VITALS: BP 148/91
[2022-12-29 12:07] VITALS: BP 120/71
== END | disposition home or self-care (01) ==
LOC: SDC 12-26 12:30
PROVIDERS: ATTEND Surgery
DX: R10.9 Unspecified abdominal pain (principal); F41.9 Anxiety disorder, unspecified; F32.A Depression, unspecified; M19.90 Unspecified osteoarthritis, unspecified site; F17.210 Nicotine dependence, cigarettes, uncomplicated; J45.909 Unspecified asthma, uncomplicated; Z95.0 Presence of cardiac pacemaker; Z79.899 Other long term (current) drug therapy; Z98.890 Other specified postprocedural states

== ENCOUNTER → 2023-01-03 | Outpatient (CLI) | payer OTHER | END | disposition home or self-care (01) | LOC: RESCLI 01:48 | PROVIDERS: ATTEND Internal Medicine | DX: M19.90 Unspecified osteoarthritis, unspecified site (principal); J44.9 Chronic obstructive pulmonary disease, unspecified; F17.200 Nicotine dependence, unspecified, uncomplicated; G62.9 Polyneuropathy, unspecified; M85.80 Other specified disorders of bone density and structure, unspecified site; J45.909 Unspecified asthma, uncomplicated; M54.42 Lumbago with sciatica, left side; F32.0 Major depressive disorder, single episode, mild; R19.09 Other intra-abdominal and pelvic swelling, mass and lump; E63.9 Nutritional deficiency, unspecified; R00.1 Bradycardia, unspecified; Z13.9 Encounter for screening, unspecified; Z88.0 Allergy status to penicillin; Z91.030 Bee allergy status; Z88.5 Allergy status to narcotic agent; Z88.8 Allergy status to other drugs, medicaments and biological substances; Z98.890 Other specified postprocedural states; Z82.49 Family history of ischemic heart disease and other diseases of the circulatory system; Z79.899 Other long term (current) drug therapy ==

== ENCOUNTER → 2023-01-17 | Outpatient (CLI) | payer OTHER | END | disposition home or self-care (01) | LOC: RESCLI 02:50 | PROVIDERS: ATTEND Internal Medicine | DX: J44.9 Chronic obstructive pulmonary disease, unspecified (principal); M19.90 Unspecified osteoarthritis, unspecified site; F17.200 Nicotine dependence, unspecified, uncomplicated; M85.80 Other specified disorders of bone density and structure, unspecified site; M54.42 Lumbago with sciatica, left side; G62.9 Polyneuropathy, unspecified; E63.9 Nutritional deficiency, unspecified; F19.10 Other psychoactive substance abuse, uncomplicated; Z88.0 Allergy status to penicillin; Z88.5 Allergy status to narcotic agent; Z88.8 Allergy status to other drugs, medicaments and biological substances; Z91.030 Bee allergy status; Z98.890 Other specified postprocedural states; Z82.49 Family history of ischemic heart disease and other diseases of the circulatory system; Z79.899 Other long term (current) drug therapy ==

== ENCOUNTER → 2023-03-21 | Outpatient (CLI) | payer OTHER | END | disposition home or self-care (01) | LOC: RAD 13:55 | PROVIDERS: ATTEND Psychiatry & Neurology Neurology | DX: M47.816 Spondylosis without myelopathy or radiculopathy, lumbar region (principal); G81.94 Hemiplegia, unspecified affecting left nondominant side; M48.061 Spinal stenosis, lumbar region without neurogenic claudication; M51.36 Other intervertebral disc degeneration, lumbar region; M47.812 Spondylosis without myelopathy or radiculopathy, cervical region ==

== ENCOUNTER 2023-05-22 11:16 | Emergency (ER) | payer OTHER ==
[~2023-05-22] VITALS: Ht 175.2 cm; Wt 73.5 kg
[2023-05-22 11:26] VITALS: BP 130/85
[2023-05-22] MEDS ORDERED: KENALOG 0.1%80 GM T (12:45)
[2023-05-22] MEDS ORDERED: MELOXICAM15 MG PO (12:45)
== END 2023-05-22 12:45 | disposition home or self-care (01) ==
LOC: ED 11:16
DX: S43.401A Unspecified sprain of right shoulder joint, initial encounter (principal); S09.90XA Unspecified injury of head, initial encounter; R07.81 Pleurodynia; I10 Essential (primary) hypertension; E78.5 Hyperlipidemia, unspecified; J45.909 Unspecified asthma, uncomplicated; F32.A Depression, unspecified; F41.9 Anxiety disorder, unspecified; M19.90 Unspecified osteoarthritis, unspecified site; Z91.030 Bee allergy status; Z88.0 Allergy status to penicillin; Z88.5 Allergy status to narcotic agent; Z98.890 Other specified postprocedural states; F17.200 Nicotine dependence, unspecified, uncomplicated; F19.10 Other psychoactive substance abuse, uncomplicated; F17.290 Nicotine dependence, other tobacco product, uncomplicated; V19.9XXA Pedal cyclist (driver) (passenger) injured in unspecified traffic accident, initial encounter; Y93.55 Activity, bike riding; Y92.410 Unspecified street and highway as the place of occurrence of the external cause; Y99.8 Other external cause status

== ENCOUNTER → 2023-09-12 | Outpatient (CLI) | payer OTHER ==
[~2023-09-12] MED LIST changes: +KENALOG 0.1%80 GM T; +MELOXICAM15 MG PO; +[UNRECOGNIZED DRUG - OTHER] IM ONE
== END | disposition home or self-care (01) ==
LOC: RESCLI 01:29
PROVIDERS: ATTEND Internal Medicine
DX: Z23 Encounter for immunization (principal)

== ENCOUNTER → 2023-10-02 | Outpatient (CLI) | payer OTHER ==
[~2023-10-02] MED LIST changes: -[UNRECOGNIZED DRUG - OTHER] IM ONE
[2023-10-02 14:28] LABS: BASO # 0.1 10*3/uL (0.0-0.1); EOS # 0.1 10*3/uL (0.0-0.4); EOS % 1.8 % (1.0-4.0); HEMATOCRIT 43.6 % (42.0-52.0); LYMPH # 2.9 10*3/uL (1.3-4.4); LYMPH % 36.2 % (27.0-41.0); MEAN CORPUSCULAR HGB 30.4 pg (27.0-31.0); MEAN CORPUSCULAR HGB CONC 32.3 g/dl (33.0-37.0); MEAN PLATELET VOLUME 8.6 fl (9.6-12.3); MONO # 0.6 10*3/uL (0.1-1.0); MONO % 7.5 % (3.0-9.0); NEUT # 4.3 10*3/uL (2.3-7.9); NEUT % 53.1 % (47.0-73.0); PLATELET COUNT AUTOMATED 312 10*3/uL (130-400); RED BLOOD COUNT 4.64 10*6/uL (4.50-5.90); RED CELL DISTRI WIDTH 12.6 % (0-14.5)
[2023-10-02 15:11] LABS: ALKALINE PHOSPHATASE 76 U/L (46-116); BUN 14 mg/dl (9-23); CHLORIDE 106 mmol/L (98-107); CHOLESTEROL 231 mg/dL (<200); LDL CHOLESTEROL 155 mg/dL (9-159); POTASSIUM 3.8 mmol/L (3.4-5.1); SGPT/ALT 32 U/L (5-49); TOTAL PROTEIN 7.1 gm/dL (6.0-8.0); TRIGLYCERIDES 128 mg/dl (<150)
[2023-10-04 13:07] LABS: TB1 Ag VALUE 0.03 IU/mL (.)
== END | disposition home or self-care (01) ==
LOC: RESCLI 01:57
PROVIDERS: Internal Medicine; ATTEND Internal Medicine
DX: J44.9 Chronic obstructive pulmonary disease, unspecified (principal); M54.42 Lumbago with sciatica, left side; G62.9 Polyneuropathy, unspecified; Z13.9 Encounter for screening, unspecified; F17.200 Nicotine dependence, unspecified, uncomplicated; Z91.030 Bee allergy status; M19.90 Unspecified osteoarthritis, unspecified site; E63.9 Nutritional deficiency, unspecified; M85.80 Other specified disorders of bone density and structure, unspecified site; F32.0 Major depressive disorder, single episode, mild; L30.9 Dermatitis, unspecified; E78.5 Hyperlipidemia, unspecified; Z98.890 Other specified postprocedural states; Z82.49 Family history of ischemic heart disease and other diseases of the circulatory system; Z88.0 Allergy status to penicillin; Z88.5 Allergy status to narcotic agent; Z88.8 Allergy status to other drugs, medicaments and biological substances; Z79.899 Other long term (current) drug therapy

== ENCOUNTER 2024-03-19 12:12 | Emergency (ER) | payer OTHER ==
[~2024-03-19] VITALS: Ht 175.2 cm; Wt 68.0 kg
[2024-03-19 13:46] VITALS: BP 119/67
[2024-03-19] MEDS ORDERED: PREDNISONE20 M1 PO (14:20)
[2024-03-19] MEDS ORDERED: methylPREDNISolone sod succ 125 MG VIAL IM ONE (14:25)
== END 2024-03-19 14:23 | disposition home or self-care (01) ==
LOC: ED 12:12
DX: L25.9 Unspecified contact dermatitis, unspecified cause (principal); F17.200 Nicotine dependence, unspecified, uncomplicated; Z91.030 Bee allergy status; Z88.0 Allergy status to penicillin; Z88.8 Allergy status to other drugs, medicaments and biological substances; Z88.6 Allergy status to analgesic agent; Z79.899 Other long term (current) drug therapy; Z95.0 Presence of cardiac pacemaker

== ENCOUNTER 2024-03-20 19:02 | Emergency (ER) | payer OTHER ==
[~2024-03-20] VITALS: Ht 182.8 cm; Wt 75.7 kg
[~2024-03-20 19:02] MED LIST changes: +PREDNISONE20 M1 PO
[2024-03-20 19:05] VITALS: BP 158/76
[2024-03-20] MEDS ORDERED: Ondansetron Hydrochloride 4 MG/2 ML VIAL IV ONE (19:10)
[2024-03-20] MEDS ORDERED: Naloxone Hydrochloride 2 MG/2 ML SYR ONE (19:14)
[2024-03-20 19:24] LABS: BASO % 0.1 % (0.0-1.0); HEMATOCRIT 34.6 % (42.0-52.0); LYMPH # 1.3 10*3/uL (1.3-4.4); LYMPH % 10.8 % (27.0-41.0); MEAN CORPUSCULAR HGB 32.3 pg (27.0-31.0); MEAN CORPUSCULAR HGB CONC 34.4 g/dl (33.0-37.0); MEAN PLATELET VOLUME 8.6 fl (9.6-12.3); MONO # 0.5 10*3/uL (0.1-1.0); MONO % 3.6 % (3.0-9.0); NEUT # 10.5 10*3/uL (2.3-7.9); NEUT % 84.9 % (47.0-73.0); PLATELET COUNT AUTOMATED 255 10*3/uL (130-400); RED BLOOD COUNT 3.68 10*6/uL (4.50-5.90); RED CELL DISTRI WIDTH 13.1 % (0-14.5); WHITE BLOOD COUNT 12.4 10*3/uL (4.8-10.8)
[2024-03-20 19:45] LABS: ALKALINE PHOSPHATASE 58 U/L (46-116); BUN 13 mg/dl (9-23); CHLORIDE 112 mmol/L (98-107); POTASSIUM 3.7 mmol/L (3.4-5.1); SGPT/ALT 36 U/L (5-49); TOTAL PROTEIN 5.7 gm/dL (6.0-8.0)
[2024-03-20 19:49] LABS: ETHYL ALCOHOL < 3.0 mg/dl (<3)
[2024-03-20 23:16] LABS: BILIRUBIN Negative (Negative); BLOOD Negative (Negative); CLARITY Clear (Clear); COLOR Yellow (Yellow); GLUCOSE Negative (Negative); KETONE Negative (Negative); LEUKO ESTERASE Negative (Negative); NITRITE Negative (Negative)
[2024-03-20 23:27] LABS: URINE AMPHETAMINES Positive (1000ng/ml); URINE BARBITURATES Negative (200ng/ml); URINE BENZODIAZEPINES Negative (200ng/ml); URINE CANNABINOIDS (THC) Positive (50ng/ml); URINE COCAINE Negative (300ng/ml); URINE METHADONE Negative (300ng/ml); URINE OPIATES Negative (300ng/ml); URINE PHENCYCLIDINE Negative (25ng/ml)
[2024-03-20 23:43] LABS: CALCIUM OXALATE CRYSTALS 1+
[2024-03-20 23:44] LABS: RBC 0-2 rbc/hpf (0-2)
== END 2024-03-20 23:52 | disposition left against medical advice (07) ==
LOC: ED 19:02
PROVIDERS: Emergency Medicine
DX: S00.03XA Contusion of scalp, initial encounter (principal); F19.10 Other psychoactive substance abuse, uncomplicated; R55 Syncope and collapse; E78.5 Hyperlipidemia, unspecified; F41.9 Anxiety disorder, unspecified; J45.909 Unspecified asthma, uncomplicated; M81.0 Age-related osteoporosis without current pathological fracture; F32.A Depression, unspecified; F17.210 Nicotine dependence, cigarettes, uncomplicated; Z98.0 Intestinal bypass and anastomosis status; Z88.0 Allergy status to penicillin; Z91.030 Bee allergy status; Z88.6 Allergy status to analgesic agent; Z88.8 Allergy status to other drugs, medicaments and biological substances; Z79.899 Other long term (current) drug therapy; Z95.0 Presence of cardiac pacemaker

== ENCOUNTER → 2024-04-02 | Outpatient (CLI) | payer OTHER | END | disposition home or self-care (01) | LOC: RESCLI 09:59 | PROVIDERS: ATTEND Internal Medicine | DX: J44.9 Chronic obstructive pulmonary disease, unspecified (principal); E63.9 Nutritional deficiency, unspecified; M85.80 Other specified disorders of bone density and structure, unspecified site; F32.0 Major depressive disorder, single episode, mild; E78.5 Hyperlipidemia, unspecified; G62.9 Polyneuropathy, unspecified; M19.90 Unspecified osteoarthritis, unspecified site; Z95.0 Presence of cardiac pacemaker; R56.9 Unspecified convulsions; Z98.890 Other specified postprocedural states; Z82.49 Family history of ischemic heart disease and other diseases of the circulatory system; Z79.899 Other long term (current) drug therapy; Z88.5 Allergy status to narcotic agent; Z88.8 Allergy status to other drugs, medicaments and biological substances ==

== ENCOUNTER → 2024-07-30 | Outpatient (CLI) | payer OTHER | END | disposition home or self-care (01) | LOC: CARD 07-23 13:00 | PROVIDERS: ATTEND Internal Medicine Cardiovascular Disease | DX: R55 Syncope and collapse (principal) ==

== ENCOUNTER → 2024-09-09 | Outpatient (CLI) | payer OTHER ==
[2024-09-09 16:10] LABS: BASO # 0.1 10*3/uL (0.0-0.1); BASO % 1.2 % (0.0-1.0); EOS # 0.1 10*3/uL (0.0-0.4); HEMATOCRIT 43.8 % (42.0-52.0); MEAN CELL VOLUME 93.4 fl (80.0-94.0); MEAN CORPUSCULAR HGB 30.7 pg (27.0-31.0); MEAN CORPUSCULAR HGB CONC 32.9 g/dl (33.0-37.0); MEAN PLATELET VOLUME 8.3 fl (9.6-12.3); MONO # 0.5 10*3/uL (0.1-1.0); MONO % 7.9 % (3.0-9.0); NEUT # 3.1 10*3/uL (2.3-7.9); NEUT % 45.7 % (47.0-73.0); PLATELET COUNT AUTOMATED 272 10*3/uL (130-400); RED BLOOD COUNT 4.69 10*6/uL (4.50-5.90); RED CELL DISTRI WIDTH 12.5 % (0-14.5); WHITE BLOOD COUNT 6.9 10*3/uL (4.8-10.8)
[2024-09-09 16:48] LABS: VITAMIN D, 25-HYDROXY 23.7 ng/mL (30-100)
[2024-09-09 17:00] LABS: ALKALINE PHOSPHATASE 67 U/L (46-116); BUN 11 mg/dl (9-23); CHLORIDE 105 mmol/L (98-107); CHOLESTEROL 224 mg/dL (<200); LDL CHOLESTEROL 170 mg/dL (9-159); POTASSIUM 4.9 mmol/L (3.4-5.1); SGPT/ALT 28 U/L (5-49); TOTAL PROTEIN 7.2 gm/dL (6.0-8.0); TRIGLYCERIDES 51 mg/dl (<150)
== END | disposition home or self-care (01) ==
LOC: LAB 14:37 → RESCLI 14:37
PROVIDERS: Student in an Organized Health Care Education/Training Program; ATTEND Internal Medicine
DX: E53.8 Deficiency of other specified B group vitamins (principal); E78.5 Hyperlipidemia, unspecified; E55.9 Vitamin D deficiency, unspecified; G62.9 Polyneuropathy, unspecified; F19.10 Other psychoactive substance abuse, uncomplicated

== ENCOUNTER 2024-12-05 12:04 | Emergency (ER) | payer OTHER ==
[~2024-12-05] VITALS: Ht 175.2 cm; Wt 78.6 kg
[2024-12-05 12:10] VITALS: BP 145/77
== END 2024-12-05 14:47 | disposition home or self-care (01) ==
LOC: ED 12:04
DX: S20.212A Contusion of left front wall of thorax, initial encounter (principal); F17.200 Nicotine dependence, unspecified, uncomplicated; Z79.899 Other long term (current) drug therapy; Z88.0 Allergy status to penicillin; Z88.5 Allergy status to narcotic agent; Z88.8 Allergy status to other drugs, medicaments and biological substances; Z91.030 Bee allergy status; Z98.890 Other specified postprocedural states; X58.XXXA Exposure to other specified factors, initial encounter; Y93.89 Activity, other specified; Y92.89 Other specified places as the place of occurrence of the external cause; Y99.8 Other external cause status

== ENCOUNTER → 2025-03-17 | Outpatient (CLI) | payer OTHER ==
[2025-03-17 12:52] LABS: BASO # 0.1 10*3/uL (0.0-0.1); BASO % 0.7 % (0.0-1.0); EOS # 0.1 10*3/uL (0.0-0.4); EOS % 1.3 % (1.0-4.0); MEAN CELL VOLUME 94.8 fl (80.0-94.0); MEAN CORPUSCULAR HGB 31.5 pg (27.0-31.0); MEAN PLATELET VOLUME 8.3 fl (9.6-12.3); MONO # 1.1 10*3/uL (0.1-1.0); MONO % 10.6 % (3.0-9.0); NEUT # 6.0 10*3/uL (2.3-7.9); NEUT % 60.1 % (47.0-73.0); NUCLEATED RED BLOOD CELL 0.0 % (0.0-0.0); NUCLEATED RED BLOOD CELL 0.0 10*3/uL (0.0-0.0); PLATELET COUNT AUTOMATED 272 10*3/uL (130-400); RED CELL DISTRI WIDTH 13.2 % (0-14.5)
[2025-03-17 13:31] LABS: VITAMIN D, 25-HYDROXY 31.5 ng/mL (30-100)
[2025-03-17 13:32] LABS: BUN 14 mg/dl (9-23); FREE T4 0.94 ng/dl (0.89-1.76); LDL CHOLESTEROL 130 mg/dL (9-159); SGPT/ALT 17 U/L (5-49)
== END | disposition home or self-care (01) ==
LOC: LAB 11:51
PROVIDERS: ATTEND Internal Medicine
DX: M48.07 Spinal stenosis, lumbosacral region (principal); M48.02 Spinal stenosis, cervical region; J98.4 Other disorders of lung; M25.78 Osteophyte, vertebrae; M54.6 Pain in thoracic spine; M54.50 Low back pain, unspecified; M54.2 Cervicalgia; J44.9 Chronic obstructive pulmonary disease, unspecified

== ENCOUNTER 2025-06-25 23:41 | Emergency (ER) | payer OTHER ==
[~2025-06-25] VITALS: Ht 175.2 cm; Wt 78.5 kg
[2025-06-25 23:58] VITALS: BP 154/93
[2025-06-26] MEDS ORDERED: Sulfamethoxazole/Trimethopri 1 TAB TAB PO ONE (00:55)
[2025-06-26] MEDS ORDERED: Tdap Vaccine 0.5 ML SYR (Adult Vaccine) IM ONE (01:40)
[2025-06-26] MEDS ORDERED: SEPTDS PO (01:50)
[2025-06-26] MEDS ORDERED: Acetaminophen/Oxycodone 5 MG/325 MG TABLET PO ONE (02:10)
== END 2025-06-26 02:14 | disposition home or self-care (01) ==
LOC: ED 23:41
DX: L03.011 Cellulitis of right finger (principal); F32.A Depression, unspecified; F41.9 Anxiety disorder, unspecified; M19.90 Unspecified osteoarthritis, unspecified site; Z98.890 Other specified postprocedural states; F17.210 Nicotine dependence, cigarettes, uncomplicated; Z88.0 Allergy status to penicillin; Z88.5 Allergy status to narcotic agent; Z88.8 Allergy status to other drugs, medicaments and biological substances; Z91.030 Bee allergy status

== ENCOUNTER 2025-06-28 13:06 | Emergency (ER) | payer OTHER ==
[~2025-06-28] VITALS: Ht 172.7 cm; Wt 56.7 kg
[2025-06-28 13:26] VITALS: BP 167/79
[2025-06-28 13:49] LABS: BASO # 0.1 10*3/uL (0.0-0.1); BASO % 0.8 % (0.0-1.0); EOS # 0.2 10*3/uL (0.0-0.4); EOS % 1.7 % (1.0-4.0); MEAN CELL VOLUME 93.7 fl (80.0-94.0); MEAN CORPUSCULAR HGB 30.9 pg (27.0-31.0); MEAN PLATELET VOLUME 8.3 fl (9.6-12.3); MONO # 0.8 10*3/uL (0.1-1.0); MONO % 7.3 % (3.0-9.0); NEUT # 7.2 10*3/uL (2.3-7.9); NEUT % 65.1 % (47.0-73.0); NUCLEATED RED BLOOD CELL 0.0 % (0.0-0.0); NUCLEATED RED BLOOD CELL 0.0 10*3/uL (0.0-0.0); PLATELET COUNT AUTOMATED 313 10*3/uL (130-400); RED CELL DISTRI WIDTH 12.7 % (0-14.5)
[2025-06-28 14:07] LABS: BUN 15 mg/dl (9-23)
[2025-06-28] MEDS ORDERED: VIBRAMYCIN100 MG PO (14:36)
[2025-06-28] MEDS ORDERED: NAPROSYN500 MG PO (14:36)
[2025-06-28] MEDS ORDERED: Acetaminophen/Oxycodone 5 MG/325 MG TABLET PO ONE (14:40)
[2025-06-30] MEDS ORDERED: BACTRIM DS 8001 EACH PO (11:57)
== END 2025-06-28 14:51 | disposition home or self-care (01) ==
LOC: ED 13:06
PROVIDERS: Nurse Practitioner Family
DX: L03.011 Cellulitis of right finger (principal); E78.5 Hyperlipidemia, unspecified; F41.9 Anxiety disorder, unspecified; J45.909 Unspecified asthma, uncomplicated; M19.90 Unspecified osteoarthritis, unspecified site; F32.A Depression, unspecified; Z68.25 Body mass index [BMI] 25.0-25.9, adult; F17.210 Nicotine dependence, cigarettes, uncomplicated; Z91.030 Bee allergy status; Z88.0 Allergy status to penicillin; Z88.5 Allergy status to narcotic agent; Z88.8 Allergy status to other drugs, medicaments and biological substances

== ENCOUNTER → 2025-06-30 | Day surgery (SDC) | payer OTHER ==
[~2025-06-30] VITALS: Ht 175.2 cm; Wt 78.5 kg
[~2025-06-30] MED LIST changes: +ACETAMINOPHEN 100 ML IV ONE; +BACTRIM DS 8001 EACH PO; +Lactated Ringer's Solution 1,000 ML IV ONE; +Lidocaine Hydrochloride 30 ML VIAL IM ONE; +Lidocaine Hydrochloride 30 ML VIAL ONE; +Midazolam Hydrochloride 2 MG/2 ML VIAL IV ONE; +PROPOFOL 200 MG/20 ML VIAL IV ONE
[2025-06-30 12:27] VITALS: BP 124/64
[2025-06-30 13:10] VITALS: BP 128/77
[2025-06-30 13:23] VITALS: BP 127/73
[2025-06-30 13:40] VITALS: BP 125/82
[2025-06-30 14:10] VITALS: BP 130/76
== END | disposition home or self-care (01) ==
LOC: SDC 11:20
PROVIDERS: ATTEND Orthopaedic Surgery
DX: L02.511 Cutaneous abscess of right hand (principal); L03.011 Cellulitis of right finger; G89.29 Other chronic pain; F32.A Depression, unspecified; F41.9 Anxiety disorder, unspecified; M19.90 Unspecified osteoarthritis, unspecified site; J18.9 Pneumonia, unspecified organism; F17.200 Nicotine dependence, unspecified, uncomplicated; Z98.890 Other specified postprocedural states; Z88.0 Allergy status to penicillin; Z88.8 Allergy status to other drugs, medicaments and biological substances

== ENCOUNTER → 2025-07-23 | Outpatient (CLI) | payer OTHER ==
[~2025-07-23] MED LIST changes: -ACETAMINOPHEN 100 ML IV ONE; -Lactated Ringer's Solution 1,000 ML IV ONE; -Lidocaine Hydrochloride 30 ML VIAL IM ONE; -Lidocaine Hydrochloride 30 ML VIAL ONE; -Midazolam Hydrochloride 2 MG/2 ML VIAL IV ONE; -PROPOFOL 200 MG/20 ML VIAL IV ONE
== END | disposition home or self-care (01) ==
LOC: ORTHO 01:30
PROVIDERS: ATTEND Orthopaedic Surgery
DX: L03.011 Cellulitis of right finger (principal)